=== PATIENT | female | born 1930 | race Caucasian/White ===

== ENCOUNTER 2017-12-29 17:29 | Emergency (ER) | payer OTHER ==
[2017-12-29] MEDS ORDERED: NA CHLORIDE 0.9% 500 ML ONE ×2 (18:57→21:29)
[2017-12-29 19:43] LABS: ALT/SGPT 16 U/L (12-78); AST/SGOT 14 U/L (15-37); Albumin 3.8 g/dL (3.4-5.0); Alkaline Phosphatase 64 U/L (45-117); Amylase Level 44 U/L (25-115); BUN Blood Urea Nitrogen 31 mg/dL (7-18); Bicarbonate 23 mmol/L (21-32); Bilirubin Direct < 0.1 mg/dL (0-0.2); Bilirubin Total 0.5 mg/dL (0.2-1.0); Glucose Level 98 mg/dL (74-106); Lipase 125 U/L (73-393); Potassium 4.3 mmol/L (3.5-5.1); Protein, Total 7.3 g/dL (6.4-8.2); Sodium Level 128 mmol/L (136-145)
[2017-12-29 19:44] LABS: Absolute Lymphocytes (CBC) 2.5 K/uL (0.7-4.9); Absolute Monocytes 0.8 K/uL (0.1-1.3); Absolute Neutrophil 5.8 K/uL (1.8-8.0); Basophils % 0.3 % (0-1.3); Eosinophils % 2.5 % (0-4.4); Hematocrit 40.1 % (36.0-45.0); Lymphocytes % 26.8 % (15.3-44.8); MCH 32.3 pg (27.0-35.0); MCV 94.8 fL (80-100); MPV 8.2 fL (7.6-11.3); Monocytes % 8.9 % (3.3-12.3); RBC Red Blood Cell Count 4.24 M/uL (3.86-4.86)
--- NOTE | 2017-12-29 20:13 | RAD REPORT ---
EXAM DESCRIPTION: RAD - Hip Left 2 View - 12/29/2017 7:01 pm CLINICAL HISTORY: Nontraumatic left groin pain COMPARISON: None. FINDINGS: AP and frogleg views of the left hip were obtained. There is no fracture or dislocation. N o AVN or focal femoral head abnormality. Hip joint space narrowing is present. No significant spurrin g or other degenerative change. No periarticular mass or hematoma. No abnormal bowel gas overlying th e left inguinal canal. No gross evidence for pelvic fracture. Pelvic assessment is limited in this se tting. SI joint degenerative changes seen. IMPRESSION: Left hip joint degenerative change, mild in degree, with no acute finding. No gross left-sided bony pelvic finding. SI joint degenerative change.
[2017-12-29 20:52] LABS: Urine Bacteria >50 /HPF (<20); Urine Culture Reflex Order REFLEXED; Urine RBC <5 /HPF (NONE SEEN)
[2017-12-29] MEDS ORDERED: FENTANYL CITR 100 MCG/2 ML ONE (20:58)
[2017-12-29] MEDS ORDERED: CEFTRIAXONE/SWI 1gm 1 GM/10 ML SYR ONE (21:29)
--- NOTE | 2017-12-29 21:51 | RAD REPORT ---
EXAM DESCRIPTION: CT - Abdomen Pelvis Wo Contrast - 12/29/2017 9:34 pm CLINICAL HISTORY: Abdominal pain, pelvic pain, groin pain COMPARISON: None. TECHNIQUE: Axial [address] imaging of the abdomen and pelvis was performed without IV contrast. No IV contrast was given because of allergy, abnormal renal function, patient refusal or physician re quest. Oral contrast was given. All CT scans are performed using dose optimization technique as appropriate and may include automated exposure control or mA/KV adjustment according to patient size. FINDINGS: No suspicious findings in the lung bases. Heart size is prominent. No pericardial thickeni ng or effusion. The liver, spleen and pancreas show no suspicious findings on non-contrast imaging. Gallbladder and b iliary tree are also without suspicious finding. No hydronephrosis or suspicious renal mass. No significant adrenal finding. Isodense renal masses an d pyelonephritis cannot be excluded in the absence of IV contrast. The urinary bladder is without sig nificant finding. Uterus is prominent for age. A 3.2 centimeter hyperdense mass in the fundal portion of the uterus is believed to be an incidental fibroid. No suspicious ovarian finding. No gastric dilatation or gastric wall thickening. No acute small bowel finding. Prominent sigmoid div erticulosis present without diverticulitis. The appendix is dilated at 10 mm. Right-side colon and te rminal ileum are well opacified with oral contrast. No periappendiceal inflammatory stranding. No eliane endicolith. Available clinical history indicates pain in the left groin area. Other than size, no add itional findings of appendicitis. No free air, free fluid or inflammatory stranding. No mass or bulky lymphadenopathy. No large hernia defects identifiable. Patient has very significant lower lumbar disc and bony degenerative change. Severe facet joint degen erative change present. Pathologic bone process is not suspected. IMPRESSION: Provided history was left lower quadrant pain. Patient has prominent diverticulosis but no diverticulitis findings. Appendix is dilated at 10 mm but there is no periappendiceal inflammatory stranding, appendicolith or other acute appendix finding. There is no clinical history provided that would indicate appendicitis type symptoms. Approximately 3.2 cm fundal fibroid in the uterus. No suspicious uterine or ovarian finding. Prominent degenerative changes in the lower lumbar spine with spinal stenosis and foraminal encroachm ent changes. No pathologic bone process suspected. Full assessment is limited is the absence of IV contrast.
--- NOTE | 2017-12-29 22:29 | EDPHYS ---
Physician Documentation [facility] Name: Riddhi Mancilla Age: 87 yrs Sex: Female : 1930 Arrival Date: 12/29/2017 Time: 17:31 Bed 19 Private MD: Jorden Henao ED Physician Pete Macario HPI: 12/29 18:35 This 87 yrs old Female presents to ER via Wheelchair with complaints of cp Abdominal Pain. 18:35 The patient presents with left groin pain. cp 18:35 Onset: The symptoms/episode began/occurred 2 day(s) ago. The symptoms do not radiate. cp Associated signs and symptoms: Pertinent positives: dysuria, Pertinent negatives: blood in stools, constipation, diarrhea, fever, headache, vomiting. Severity of pain: in the emergency department the pain is unchanged despite home interventions. Daughter denies fall or injury to hip. Reports patient has appeared in noticeable discomfort when walking. Historical: - Allergies: 17:35 No Known Allergies; aa5 - PMHx: 17:35 Hypertension; Arthritis; Anemia; Migraines; aa5 17:36 Dementia; aa5 - PSHx: 17:34 cataract surg bilaterally; arm surg; sinus surg; Tonsillectomy; aa5 - Immunization history:: Pneumococcal vaccine is not up to date. - Social history:: Smoking status: Patient/guardian denies using tobacco. - Ebola Screening: : No symptoms or risks identified at this time. ROS: 18:40 Constitutional: Negative for body aches, chills, fever, poor PO intake. cp 18:40 Eyes: Negative for injury, pain, redness, and discharge. cp 18:40 ENT: Negative for drainage from ear(s), ear pain, sore throat, difficulty swallowing, cp difficulty handling secretions. 18:40 Cardiovascular: Negative for chest pain, edema. 18:40 Respiratory: Negative for cough, wheezing. 18:40 Abdomen/GI: Positive for left groin pain, Negative for vomiting, diarrhea, constipation, anorexia, black/tarry stool, rectal bleeding. 18:40 Back: Negative for decreased range of motion, radiated pain. 18:40 : Positive for burning with urination. 18:40 Skin: Negative for cellulitis, rash. 18:40 Neuro: Negative for altered mental status, headache, weakness. 18:40 All other systems are negative. Exam: 18:50 Constitutional: The patient appears in no acute distress, alert, awake, cp non-diaphoretic, non-toxic, well developed, well nourished. 18:50 Head/Face: Normocephalic, atraumatic. cp 18:50 Eyes: Periorbital structures: appear normal, Pupils: equal, round, and reactive to cp light and accomodation, Extraocular movements: intact throughout, Conjunctiva: exudate, bilaterally, injected, bilaterally, Sclera: no appreciated abnormality, Lids and lashes: appear normal, bilaterally. 18:50 ENT: External ear(s): are unremarkable, Ear canal(s): are normal, clear, TM's: dullness, bilaterally, Nose: is normal, Mouth: Lips: moist, Oral mucosa: pink and intact, moist, Posterior pharynx: is normal, airway is patent, no erythema, no exudate. 18:50 Neck: ROM/movement: is normal, is supple, without pain, no range of motions cp limitations, no meningismus, no nuchal rigidity. 18:50 Chest/axilla: Inspection: normal, Palpation: is normal, no crepitus, no tenderness. 18:50 Cardiovascular: Rate: normal, Rhythm: regular, Edema: is not appreciated, JVD: is not appreciated. 18:50 Respiratory: the patient does not display signs of respiratory distress, Respirations: normal, no use of accessory muscles, no retractions, no splinting, no tachypnea, labored breathing, is not present, Breath sounds: are clear throughout, no decreased breath sounds, no stridor, no wheezing. 18:50 Abdomen/GI: Inspection: abdomen appears normal, Bowel sounds: active, all quadrants, Palpation: soft, in all quadrants, mild abdominal tenderness, in the left lower abdomen and left groin, rebound tenderness, is not appreciated, voluntary guarding, is not appreciated, involuntary guarding, is not appreciated. 18:50 Back: pain, is absent, ROM is normal. 18:50 Musculoskeletal/extremity: Extremities: grossly normal except: noted in the left hip: tenderness, There is no evidence of decreased ROM, deformity. 18:50 Skin: cellulitis, is not appreciated, no rash present. 18:50 Neuro: Orientation: no acute changes, per family, Mentation: no acute changes, per family. Vital Signs: 17:36 BP 149 / 77; Pulse 70; Resp 16 S; Temp 98.7(TE); Pulse Ox 95% on R/A; aa5 19:24 BP 124 / 78; Pulse 63; Resp 16; Pulse Ox 98% on R/A; mt 20:12 BP 143 / 88; Pulse 61; Resp 16; Pulse Ox 95% on R/A; mt 20:51 BP 151 / 76; Pulse 70; Resp 16; Pulse Ox 99% on R/A; mt 21:38 BP 154 / 79; Pulse 69; Resp 16; Pulse Ox 99% on R/A; mt 22:55 BP 143 / 70; Pulse 62; Resp 18 S; Temp 98.2(O); Pulse Ox 97% on R/A; Pain 0/10; ea MDM: 18:04 Patient medically screened. cp 19:00 Differential diagnosis: bowel obstruction, gastritis, Pyelonephritis, Ureterolithiasis, cp urinary tract infection, hip fracture. 22:25 Data reviewed: vital signs, nurses notes, lab test result(s), radiologic studies, CT cp scan, plain films. 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 22:25 Response to treatment: the patient's symptoms have markedly improved after treatment, cp and as a result, I will discharge patient. 12/29 18:28 Order name: Amylase, Serum; Complete Time: 20:53 cp 12/29 18:28 Order name: Basic Metabolic Panel; Complete Time: 20:53 cp 12/29 20:53 Interpretation: Normal except: NA 128; BUN 31; CRE 1.60; GFR 30. cp 12/29 18:28 Order name: CBC with Diff; Complete Time: 20:53 cp 12/29 18:28 Order name: Creatinine for Radiology; Complete Time: 20:53 cp 12/29 20:54 Interpretation: Abnormal: CRE 1.50; GFR 33. cp 12/29 18:28 Order name: Hepatic Function; Complete Time: 20:53 cp 12/29 20:53 Interpretation: Normal except: AST 14. cp 12/29 18:28 Order name: Lipase; Complete Time: 20:53 cp 12/29 18:28 Order name: Urine Microscopic Only; Complete Time: 20:53 cp 12/29 20:54 Interpretation: Normal except: UWBC 5-10; UBACT >50. cp 12/29 18:28 Order name: XRAY Hip LEFT 2 view; Complete Time: 20:53 cp 12/29 20:54 Order name: Urine Culture EDMS 12/29 21:12 Order name: CT Abd/Pelvis - Without Cont: give oral contrast; Complete Time: 21:55 cp 12/29 18:28 Order name: IV Saline Lock; Complete Time: 19:20 cp 12/29 18:28 Order name: Labs collected and sent; Complete Time: 19:20 cp 12/29 18:28 Order name: Urine Dipstick-Ancillary (obtain specimen); Complete Time: 20:02 cp Administered Medications: 19:05 Drug: NS 0.9% 500 ml Route: IV; Rate: bolus; Site: right antecubital; em 21:07 Follow up: IV Status: Completed infusion; IV Intake: 500ml tl3 21:08 Drug: fentaNYL (PF) 25 mcg Route: IVP; Site: right antecubital; tl3 21:53 Follow up: Response: No adverse reaction; Pain is decreased ea 21:53 Drug: NS 0.9% 500 ml Route: IV; Rate: bolus; Site: right antecubital; ea 22:30 Follow up: Response: No adverse reaction; IV Status: Completed infusion; IV Intake: ea 500ml 21:53 Drug: Rocephin - (cefTRIAXone) 1 grams Route: IVPB; Infused Over: 30 mins; Site: right ea antecubital; 22:30 Follow up: Response: No adverse reaction; IV Status: Completed infusion ea 23:05 Drug: Augmentin 875 mg Route: PO; ea 23:20 Follow up: Response: No adverse reaction ea Disposition: 12/30 16:07 Co-signature as Attending Physician, Pete Macario MD I agree with the assessment and lizzie plan of care. Disposition: 12/29/17 22:28 Discharged to Home. Impression: Urinary tract infection, site not specified. - Condition is Stable. - Discharge Instructions: Urinary Tract Infection. - Prescriptions for Augmentin 875- 125 mg Oral Tablet - take 1 tablet by ORAL route every 12 hours for 10 days; 20 tablet. Tramadol 50 mg Oral Tablet - take 1 tablet by ORAL route every 8 hours as needed; 12 tablet. - Medication Reconciliation Form, Thank You Letter, Antibiotic Education, Prescription Opioid Use form. - Follow up: Jorden Henao MD; When: 1 - 2 days; Reason: Recheck today's complaints. - Problem is new. - Symptoms have improved. Signatures: Dispatcher [employer] EDDE Pete Macario MD MD cha Munoz, Edgar, ADMINISTRATIVE SUPERVISOR ADMINISTRATIVE SUPERVISOR em Aliya Sharpe, RN RN aa5 Pete Enriquez, PATTI PA cp Donita Schumacher, RN RN Vickie Perez, RN RN tl3 Corrections: (The following items were deleted from the chart) 12/29 21:19 19:50 Abdomen Pelvis W Con+CT.RAD.BRZ ordered. [facility] 23:26 22:28 12/29/2017 22:28 Discharged to Home. Impression: Urinary tract infection, site ea not specified. Condition is Stable. Forms are Medication Reconciliation Form, Thank You Letter, Antibiotic Education, Prescription Opioid Use. Follow up: Jorden Henao; When: 1 - 2 days; Reason: Recheck today's complaints. Problem is new. Symptoms have improved. cp
--- NOTE | 2017-12-29 22:29 | ER ---
Nurse's Notes [facility] Name: Riddhi Mancilla Age: 87 yrs Sex: Female : 1930 Arrival Date: 12/29/2017 Time: 17:31 Bed 19 Private MD: Jorden Henao Diagnosis: Urinary tract infection, site not specified Presentation: 12/29 17:35 Presenting complaint: Patient states: left groin pain that began 2 days ago. Pt also aa5 reports burning with urination. Transition of care: patient was not received from another setting of care. Onset of symptoms was December 2017. Risk Assessment: Do you want to hurt yourself or someone else? Patient reports no desire to harm self or others. Initial Sepsis Screen: Does the patient meet any 2 criteria? No. Patient's initial sepsis screen is negative. Does the patient have a suspected source of infection? No. Patient's initial sepsis screen is negative. Care prior to arrival: None. 17:35 Method Of Arrival: Wheelchair aa5 17:35 Acuity: PARAS 3 aa5 Historical: - Allergies: 17:35 No Known Allergies; aa5 - PMHx: 17:35 Hypertension; Arthritis; Anemia; Migraines; aa5 17:36 Dementia; aa5 - PSHx: 17:34 cataract surg bilaterally; arm surg; sinus surg; Tonsillectomy; aa5 - Immunization history:: Pneumococcal vaccine is not up to date. - Social history:: Smoking status: Patient/guardian denies using tobacco. - Ebola Screening: : No symptoms or risks identified at this time. Screenin:45 Abuse screen: no apparent signs noted. Nutritional screening: No deficits noted. em Tuberculosis screening: No symptoms or risk factors identified. Fall Risk Secondary diagnosis (15 points) dementia, Total Villarreal Fall Scale indicates No Risk (0-24 pts). Assessment: 18:00 General: Appears in no apparent distress. comfortable, Behavior is calm, cooperative. em Pain: Denies pain. Neuro: Level of Consciousness is awake, alert, obeys commands, Oriented to person, place. Cardiovascular: Capillary refill < 3 seconds Patient's skin is warm and dry. Respiratory: Airway is patent Respiratory effort is even, unlabored, Respiratory pattern is regular, symmetrical. GI: Bowel sounds present X 4 quads. Abd is soft and non tender X 4 quads. : Parent/caregiver report the patient having "may have UTI". Derm: Skin is intact, Skin is pink, warm \\T\\ dry. Musculoskeletal: Range of motion: intact in all extremities. 18:55 Reassessment: I agree with above assessment by Carlo Luis LVN. iw 19:30 General: Appears in no apparent distress. Behavior is calm, cooperative. Pain: Denies ea pain. Neuro: Level of Consciousness is awake, alert, obeys commands, Oriented to person, place. Cardiovascular: Patient's skin is warm and dry. Respiratory: Airway is patent Respiratory effort is even, unlabored, Respiratory pattern is regular, symmetrical. GI: Bowel sounds present X 4 quads. Abd is soft and non tender. : Parent/caregiver report the patient having daughter reports pt may be having a UTI. Derm: Skin is pink, warm \\T\\ dry. Musculoskeletal: Circulation, motion, and sensation intact. 20:13 Reassessment: Patient and/or family updated on plan of care and expected duration. Pain ea level reassessed. Alert and oriented to self and place. Respirations even and unlabored, chest expansions even and symmetrical. No s/s of pain or discomfort noted at this time. Family at bedside. 21:50 Reassessment: Patient and/or family updated on plan of care and expected duration. Pain ea level reassessed. 22:45 Reassessment: Patient and/or family updated on plan of care and expected duration. Pain ea level reassessed. Pt alert and oriented to self and place. Respirations even and unlabored, chest expansions even and symmetrical. No s/s of pain or discomfort noted at this time. 23:10 Reassessment: Patient and/or family updated on plan of care and expected duration. Pain ea level reassessed. Pt alert and oriented x 2. Respirations even and unlabored, chest expansions even and symmetrical. Discharge instructions given to patients family, verbalized the understanding of instruction. Vital Signs: 17:36 BP 149 / 77; Pulse 70; Resp 16 S; Temp 98.7(TE); Pulse Ox 95% on R/A; aa5 19:24 BP 124 / 78; Pulse 63; Resp 16; Pulse Ox 98% on R/A; mt 20:12 BP 143 / 88; Pulse 61; Resp 16; Pulse Ox 95% on R/A; mt 20:51 BP 151 / 76; Pulse 70; Resp 16; Pulse Ox 99% on R/A; mt 21:38 BP 154 / 79; Pulse 69; Resp 16; Pulse Ox 99% on R/A; mt 22:55 BP 143 / 70; Pulse 62; Resp 18 S; Temp 98.2(O); Pulse Ox 97% on R/A; Pain 0/10; ea ED Course: 17:31 Patient arrived in ED. mr 17:32 Jorden Henao MD is Private Physician. mr 17:33 Arm band placed on. aa5 17:36 Triage completed. aa5 17:46 Carlo Luis LVN is Primary Nurse. em 18:00 Patient has correct armband on for positive identification. Bed in low position. Call em light in reach. Side rails up X2. Adult w/ patient. 18:04 Pete Enriquez PA is PHCP. cp 18:04 Pete Macario MD is Attending Physician. cp 19:02 XRAY Hip LEFT 2 view In Process Unspecified. EDMS 19:05 Inserted saline lock: 20 gauge in right antecubital area, using aseptic technique. em Blood collected. 19:31 No provider procedures requiring assistance completed. em 21:33 CT completed. Patient moved to CT via stretcher. Patient moved back from CT. cw1 21:34 CT Abd/Pelvis - Without Cont: give oral contrast In Process Unspecified. EDMS 22:28 Jorden Henao MD is Referral Physician. cp 23:11 IV discontinued, intact, bleeding controlled, No redness/swelling at site. Pressure ea dressing applied. Administered Medications: 19:05 Drug: NS 0.9% 500 ml Route: IV; Rate: bolus; Site: right antecubital; em 21:07 Follow up: IV Status: Completed infusion; IV Intake: 500ml tl3 21:08 Drug: fentaNYL (PF) 25 mcg Route: IVP; Site: right antecubital; tl3 21:53 Follow up: Response: No adverse reaction; Pain is decreased ea 21:53 Drug: NS 0.9% 500 ml Route: IV; Rate: bolus; Site: right antecubital; ea 22:30 Follow up: Response: No adverse reaction; IV Status: Completed infusion; IV Intake: ea 500ml 21:53 Drug: Rocephin - (cefTRIAXone) 1 grams Route: IVPB; Infused Over: 30 mins; Site: right ea antecubital; 22:30 Follow up: Response: No adverse reaction; IV Status: Completed infusion ea 23:05 Drug: Augmentin 875 mg Route: PO; ea 23:20 Follow up: Response: No adverse reaction ea Intake: 21:07 IV: 500ml; Total: 500ml. tl3 22:30 IV: 500ml; Total: 1000ml. ea Outcome: 22:28 Discharge ordered by MD. cp 23:02 Discharge instructions given to family, Instructed on discharge instructions, follow up ea and referral plans. medication usage, Demonstrated understanding of instructions, follow-up care, medications, Prescriptions given X 2. 23:18 Discharged to home via wheelchair, with family. ea 23:18 Condition: improved 23:26 Patient left the ED. ea Addendum: 01/01/2018 08:47 Addendum: Culture Results: Positive urine culture. No further action required. Bacteria i w sensitive to prescribed antibiotic. Signatures: Dispatcher [employer] Delaney Solares mr Luis, Carlo, JUNIOR PROJECT COORDINATOR JUNIOR PROJECT COORDINATOR em Rabia Weinberg, RN Aliya Jones RN RN Gisela Bella1 Pete Enriquez PA PA cp Thompson, Moriah Donita Thacker RN Vickie Carrera ea RN RN tl3
[2017-12-29] MEDS ORDERED: AMOX/K CLAV 875 MG TAB ONE (23:06)
== END 2017-12-29 23:26 | disposition home or self-care (01) ==
LOC: ER 17:29
DX: N39.0 Urinary tract infection, site not specified (principal); I10 Essential (primary) hypertension
CPT/HCPCS: 36415; 73502; 74176; 80048; 80076; 81015; 82150; 83690; 85025; 87086; 87088; J0696; J3010; 87077; 87186; 96361; 96365; 96375; 99284

== ENCOUNTER 2018-03-06 19:38 | Emergency (ER) | payer OTHER ==
--- NOTE | 2018-03-06 20:59 | RAD REPORT ---
EXAM DESCRIPTION: RAD - Chest Single View - 03/06/2018 8:52 pm CLINICAL HISTORY: COUGH Chest pain. COMPARISON: No comparisons FINDINGS: Portable technique limits examination quality. The lungs are grossly clear. The heart is normal in size. No displaced fractures. IMPRESSION: No acute intrathoracic process suspected.
[2018-03-06 21:09] LABS: Urine Bacteria 20-50 /HPF (<20); Urine Culture Reflex Order REFLEXED; Urine Mucus 1+ /HPF (NONE SEEN); Urine RBC <5 /HPF (NONE SEEN)
[2018-03-06 21:09] LABS: Urine Blood TRACE (NEG); Urine Glucose NEGATIVE (NEG); Urine Protein NEGATIVE (NEG)
[2018-03-06 21:30] LABS: Absolute Lymphocytes (CBC) 2.6 K/uL (0.7-4.9); Absolute Neutrophil 9.6 K/uL (1.8-8.0); Basophils % 0.3 % (0-1.3); Eosinophils % 2.5 % (0-4.4); Hematocrit 42.1 % (36.0-45.0); Lymphocytes % 19.2 % (15.3-44.8); MCH 32.1 pg (27.0-35.0); MCV 93.6 fL (80-100); Monocytes % 7.3 % (3.3-12.3)
[2018-03-06 21:33] LABS: Protime INR 0.98
[2018-03-06 21:47] LABS: Albumin 3.9 g/dL (3.4-5.0); Bilirubin Direct 0.1 mg/dL (0-0.2); Bilirubin Total 0.5 mg/dL (0.2-1.0); CKMB Creatine Kinase MB 1.2 ng/mL (0.3-3.6); Magnesium 2.3 mg/dL (1.8-2.4); Potassium 4.4 mmol/L (3.5-5.1); Protein, Total 7.7 g/dL (6.4-8.2)
[2018-03-06] MEDS ORDERED: CEFTRIAXONE 1000 MG/VIAL ONE (23:06)
[2018-03-06] MEDS ORDERED: NA CHLORIDE 0.9% 250 ML ONE (23:06)
--- NOTE | 2018-03-07 00:17 | EDPHYS ---
Physician Documentation [facility] Name: Riddhi Mancilla Age: 87 yrs Sex: Female : 1930 Arrival Date: 03/06/2018 Time: 19:42 Bed 17 Private MD: Jorden Henao ED Physician Farzad Jon HPI: 03/07 00:11 This 87 yrs old Female presents to ER via Wheelchair with complaints of Flank wa Pain, DEHYDRATION. 00:11 The patient complains of pain in the right flank. The pain does not radiate. Onset: The wa symptoms/episode began/occurred 1 week(s) ago. Modifying factors: The symptoms are alleviated by nothing. the symptoms are aggravated by urination. Associated signs and symptoms: Pertinent positives: dysuria, Pertinent negatives: diarrhea, fever, vomiting. Severity of pain: At its worst the pain was moderate in the emergency department the pain is unchanged. The patient has not experienced similar symptoms in the past. The patient has not recently seen a physician. Historical: - Allergies: 03/06 19:48 No Known Allergies; aj1 - Home Meds: 20:16 digoxin 125 mcg Oral tab [Active]; venlafaxine 150 mg oral tr24 [Active]; enalapril bp maleate 20 mg Oral tab [Active]; levothyroxine 75 mcg tab [Active]; memantine 10 mg oral tab [Active]; Cimetidine 800 mg Oral [Active]; Klor-Con 10 10 mEq Oral TbER [Active]; - PMHx: 19:48 Anemia; Arthritis; Dementia; Hypertension; Migraines; aj1 - PSHx: 19:48 cataract surg bilaterally; arm surg; sinus surg; Tonsillectomy; aj1 - Immunization history:: Flu vaccine is not up to date. - Social history:: Smoking status: Patient/guardian denies using tobacco. - Ebola Screening: : Patient denies travel to an Ebola-affected area in the 21 days before illness onset. - Family history:: not pertinent. - Hospitalizations: : No recent hospitalization is reported. ROS: 03/07 00:12 Constitutional: Negative for fever, chills, and weight loss, Eyes: Negative for injury, wa pain, redness, and discharge, ENT: Negative for injury, pain, and discharge, Neck: Negative for injury, pain, and swelling, Cardiovascular: Negative for chest pain, palpitations, and edema, Respiratory: Negative for shortness of breath, cough, wheezing, and pleuritic chest pain, Abdomen/GI: Negative for abdominal pain, nausea, vomiting, diarrhea, and constipation, Back: Negative for injury and pain, MS/Extremity: Negative for injury and deformity, Skin: Negative for injury, rash, and discoloration, Neuro: Negative for headache, weakness, numbness, tingling, and seizure. : Positive for urinary symptoms. Exam: 00:12 Constitutional: This is a well developed, well nourished patient who is awake, alert, wa and in no acute distress. Head/Face: Normocephalic, atraumatic. Eyes: Pupils equal round and reactive to light, extra-ocular motions intact. Lids and lashes normal. Conjunctiva and sclera are non-icteric and not injected. Cornea within normal limits. Periorbital areas with no swelling, redness, or edema. ENT: Nares patent. No nasal discharge, no septal abnormalities noted. Tympanic membranes are normal and external auditory canals are clear. Oropharynx with no redness, swelling, or masses, exudates, or evidence of obstruction, uvula midline. Mucous membranes moist. Neck: Trachea midline, no thyromegaly or masses palpated, and no cervical lymphadenopathy. Supple, full range of motion without nuchal rigidity, or vertebral point tenderness. No Meningismus. Chest/axilla: Normal chest wall appearance and motion. Nontender with no deformity. No lesions are appreciated. Cardiovascular: Regular rate and rhythm with a normal S1 and S2. No gallops, murmurs, or rubs. Normal PMI, no JVD. No pulse deficits. Respiratory: Lungs have equal breath sounds bilaterally, clear to auscultation and percussion. No rales, rhonchi or wheezes noted. No increased work of breathing, no retractions or nasal flaring. Abdomen/GI: Soft, non-tender, with normal bowel sounds. No distension or tympany. No guarding or rebound. No evidence of tenderness throughout. Back: No spinal tenderness. No costovertebral tenderness. Full range of motion. Skin: Warm, dry with normal turgor. Normal color with no rashes, no lesions, and no evidence of cellulitis. MS/ Extremity: Pulses equal, no cyanosis. Neurovascular intact. Full, normal range of motion. Neuro: Awake and alert, GCS 15, oriented to person, place, time, and situation. Cranial nerves II-XII grossly intact. Motor strength 5/5 in all extremities. Sensory grossly intact. Cerebellar exam normal. Normal gait. Psych: Awake, alert, with orientation to person, place and time. Behavior, mood, and affect are within normal limits. 00:12 : CVA tenderness, is absent. Vital Signs: 03/06 19:48 BP 153 / 84; Pulse 75; Resp 18; Temp 98.5(O); Pulse Ox 97% on R/A; Weight 45.36 kg (R); aj1 Pain 0/10; 21:30 BP 147 / 81; Pulse 65; Resp 14; Pulse Ox 95% ; bp 22:45 BP 169 / 82; Pulse 68; Resp 14; Pulse Ox 97% ; bp 03/07 00:56 BP 163 / 82; Pulse 67; Resp 14; Pulse Ox 98% ; bp MDM: 03/06 20:02 Patient medically screened. 03/07 00:13 Differential diagnosis: nephrolithiasis, pyelonephritis, UTI. Data reviewed: vital wa signs, nurses notes, lab test result(s). Test interpretation: by ED physician or midlevel provider: UA noted for UTI. CT noted for constipation. Response to treatment: the patient's symptoms have markedly improved after treatment. 03/06 20: Order name: Urine Microscopic Only; Complete Time: 22:10 03/06 20:28 Order name: Basic Metabolic Panel; Complete Time: 22:10 03/06 20:28 Order name: CBC with Diff 03/06 20: Order name: Ckmb; Complete Time: 22:10 03/06 20:28 Order name: CPK; Complete Time: 22:10 03/06 20:28 Order name: LFT's; Complete Time: 22:10 03/06 20:28 Order name: Magnesium; Complete Time: 22:10 03/06 20:28 Order name: NT PRO-BNP; Complete Time: 22:10 03/06 20:28 Order name: PT-INR; Complete Time: 22:10 03/06 20:28 Order name: Ptt, Activated; Complete Time: 22:10 03/06 20:26 Order name: IV Saline Lock; Complete Time: 23:35 pr 03/06 20:26 Order name: Labs collected and sent; Complete Time: 21:08 pr 03/06 20:26 Order name: Urine Dipstick-Ancillary (obtain specimen); Complete Time: 21:08 pr 03/06 20:28 Order name: XRAY Chest (1 view); Complete Time: 21:04 pr 03/06 20:28 Order name: Troponin (emerg Dept Use Only); Complete Time: 22:10 pr 03/06 20:28 Order name: Cardiac monitoring; Complete Time: 21:09 pr 03/06 20:28 Order name: IV Saline Lock; Complete Time: 23:35 pr 03/06 20:28 Order name: O2 Sat Monitoring; Complete Time: 21:08 pr 03/06 21:03 Order name: Urine Dipstick--Ancillary (enter results); Complete Time: 22:09 2 03/06 21:09 Order name: Urine Culture [facility] 03/06 22:12 Order name: CT Abd/Pelvis - Without Cont wa Administered Medications: 03/06 23:10 Drug: Rocephin - (cefTRIAXone) 2 grams Route: IVPB; Infused Over: 30 mins; Site: left bp antecubital; 03/07 00:29 Follow up: IV Status: Completed infusion; IV Intake: 100ml bp Disposition: 03/07/18 00:16 Discharged to Home. Impression: Urinary tract infection, site not specified, Constipation. - Condition is Stable. - Discharge Instructions: Constipation, Adult, [id number], Urinary Tract Infection, Adult, [id number]. - Prescriptions for senna 8.6 mg Oral tablet - take 2 tablet by ORAL route once daily; 10 tablet. Keflex 500 mg Oral Capsule - take 1 capsule by ORAL route every 8 hours for 5 days; 15 capsule. - Medication Reconciliation Form, Thank You Letter, Antibiotic Education, Prescription Opioid Use form. - Follow up: Private Physician; When: 1 - 2 days; Reason: Re-evaluation by your physician. - Problem is new. - Symptoms have improved. - Notes: please give medicine as prescribed. give senna only if difficulty voiding stool and stool is hard. do not give when stool becomes regularized Signatures: Dispatcher [facility] Kimberly Vasques RN RN aj1 DanayFarzad mancuso MD MD wa Peltier, Brian, RN RN bp Corrections: (The following items were deleted from the chart) 00:16 00:16 03/07/2018 00:16 Discharged to Home. Impression: Urinary tract infection, site wa not specified. Condition is Stable. Forms are Medication Reconciliation Form, Thank You Letter, Antibiotic Education, Prescription Opioid Use. Follow up: Private Physician; When: 1 - 2 days; Reason: Re-evaluation by your physician. Problem is new. Symptoms have improved. pr 01:10 00:16 03/07/2018 00:16 Discharged to Home. Impression: Urinary tract infection, site bp not specified; Constipation. Condition is Stable. Forms are Medication Reconciliation Form, Thank You Letter, Antibiotic Education, Prescription Opioid Use. Follow up: Private Physician; When: 1 - 2 days; Reason: Re-evaluation by your physician. Problem is new. Symptoms have improved. wa
--- NOTE | 2018-03-07 00:17 | ER ---
Nurse's Notes [facility] Name: Riddhi Mancilla Age: 87 yrs Sex: Female : 1930 Arrival Date: 03/06/2018 Time: 19:42 Bed 17 Private MD: Jorden Henao Diagnosis: Urinary tract infection, site not specified;Constipation Presentation: 03/06 19:45 Presenting complaint: Child states: Her urine has been smelling really foul and she is aj1 having pain on the right flank. Patient denies pain at this time. And she has been falling at home. Transition of care: patient was not received from another setting of care. Onset of symptoms was March 06, 2018. Risk Assessment: Do you want to hurt yourself or someone else? Patient reports no desire to harm self or others. Initial Sepsis Screen: Does the patient meet any 2 criteria? No. Patient's initial sepsis screen is negative. Does the patient have a suspected source of infection? Yes: Dysuria/Frequency/Urgency/UTI. Care prior to arrival: None. 19:45 Method Of Arrival: Wheelchair aj1 19:45 Acuity: PARAS 3 aj1 Triage Assessment: 19:48 General: Appears in no apparent distress. comfortable, Behavior is calm, cooperative, aj1 appropriate for age. Pain: Denies pain. Neuro: Level of Consciousness is awake, alert, obeys commands. Cardiovascular: Patient's skin is warm and dry. Respiratory: Airway is patent Respiratory effort is even, unlabored, Respiratory pattern is regular, symmetrical. : Denies burning with urination, urinary frequency, Parent/caregiver report the patient having flank pain. Derm: Skin is pink, warm \T\ dry. normal. Historical: - Allergies: 19:48 No Known Allergies; aj1 - Home Meds: 20:16 digoxin 125 mcg Oral tab [Active]; venlafaxine 150 mg oral tr24 [Active]; enalapril bp maleate 20 mg Oral tab [Active]; levothyroxine 75 mcg tab [Active]; memantine 10 mg oral tab [Active]; Cimetidine 800 mg Oral [Active]; Klor-Con 10 10 mEq Oral TbER [Active]; - PMHx: 19:48 Anemia; Arthritis; Dementia; Hypertension; Migraines; aj1 - PSHx: 19:48 cataract surg bilaterally; arm surg; sinus surg; Tonsillectomy; aj1 - Immunization history:: Flu vaccine is not up to date. - Social history:: Smoking status: Patient/guardian denies using tobacco. - Ebola Screening: : Patient denies travel to an Ebola-affected area in the 21 days before illness onset. - Family history:: not pertinent. - Hospitalizations: : No recent hospitalization is reported. Screenin:18 Abuse screen: Denies threats or abuse. Denies injuries from another. Nutritional bp screening: No deficits noted. Tuberculosis screening: No symptoms or risk factors identified. Fall Risk None identified. Assessment: 20:00 General: Appears in no apparent distress. comfortable, Behavior is calm, cooperative, bp PT DENIES ACUTE S/S. Pain: Denies pain. Neuro: Level of Consciousness is awake, alert, obeys commands, Oriented to person, place, situation. Cardiovascular: No deficits noted. Respiratory: Airway is patent Respiratory effort is even, unlabored, Respiratory pattern is regular, symmetrical. GI: No signs and/or symptoms were reported involving the gastrointestinal system. : No signs and/or symptoms were reported regarding the genitourinary system. EENT: No deficits noted. Derm: No deficits noted. Musculoskeletal: Circulation, motion, and sensation intact. Range of motion: intact in all extremities. 21:30 Reassessment: VS STABLE, LAB RESULTS PENDING. 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 bp 22:59 Reassessment: PT RETURNED FROM CT. RESULTS AND ABX PENDING. bp 03/07 00:56 Reassessment: PT D/C HOME VIA W/C WITH FAMILY, DX WITH UTI AND CONSTIPATION. bp Vital Signs: 03/06 19:48 BP 153 / 84; Pulse 75; Resp 18; Temp 98.5(O); Pulse Ox 97% on R/A; Weight 45.36 kg (R); aj1 Pain 0/10; 21:30 BP 147 / 81; Pulse 65; Resp 14; Pulse Ox 95% ; bp 22:45 BP 169 / 82; Pulse 68; Resp 14; Pulse Ox 97% ; bp 03/07 00:56 BP 163 / 82; Pulse 67; Resp 14; Pulse Ox 98% ; bp ED Course: 03/06 19:42 Patient arrived in ED. es 19:43 Jorden Henao MD is Private Physician. es 19:47 Triage completed. aj1 19:48 Arm band placed on Patient placed in an exam room. aj1 20:01 Farzad Jon MD is Attending Physician. id 20:07 Isidoro Garcia, RN is Primary Nurse. bp 20:18 Patient has correct armband on for positive identification. Bed in low position. Call bp light in reach. Side rails up X2. Adult w/ patient. 20:42 Straight cath inserted, using sterile technique, 16 Fr. Returned clear yellow urine. mt Patient tolerated well. 20:51 XRAY Chest (1 view) In Process Unspecified. EDMS 22:[address] 22:29 CT Abd/Pelvis - Without Cont In Process Unspecified. EDOH 23:06 Inserted saline lock: 24 gauge in left antecubital area, using aseptic technique. Blood mt collected. 03/07 00:57 No provider procedures requiring assistance completed. IV discontinued, intact, bp bleeding controlled, No redness/swelling at site. Pressure dressing applied. Administered Medications: 03/06 23:10 Drug: Rocephin - (cefTRIAXone) 2 grams Route: IVPB; Infused Over: 30 mins; Site: left bp antecubital; 03/07 00:29 Follow up: IV Status: Completed infusion; IV Intake: 100ml bp Intake: 00:29 IV: 100ml; Total: 100ml. bp Outcome: 00:16 Discharge ordered by . id 00:57 Discharged to home via wheelchair, with family. bp 00:57 Condition: stable 00:57 Discharge instructions given to family, Instructed on discharge instructions, follow up and referral plans. medication usage, Demonstrated understanding of instructions, follow-up care, medications, Prescriptions given X 2. 01:10 Patient left the ED. bp Addendum: 03/09/2018 11:37 Addendum: Culture Results: Positive urine culture. No further action required. Bacteria s s sensitive to prescribed antibiotic. Signatures: Dispatcher [employer] Kimberly Kennedy, RN RN aj1 Roxanna Garcia Susan sj Smirch, Shelby, RN RN ss Thompson, Moriah nj Farzad Jon MD MD wa Peltier, Brian, RN RN bp
--- NOTE | 2018-03-07 08:22 | RAD REPORT ---
EXAM DESCRIPTION: CT - Abdomen Pelvis Wo Contrast - 03/07/2018 3:35 am CLINICAL HISTORY: Abdominal pain. R flank pain COMPARISON: Abdomen Pelvis Wo Contrast dated 12/29/2017 TECHNIQUE: CT imaging of the abdomen and pelvis was performed without contrast. Solid organ, bowel a nd vascular assessment is limited due to lack of IV and oral contrast. All CT scans are performed using dose optimization technique as appropriate and may include automated exposure control or mA/KV adjustment according to patient size. FINDINGS: The lower lung cordoba are clear. The liver, spleen, pancreas, adrenal glands and kidneys are within normal limits for a limited non-co ntrast examination. No bowel obstruction, free air, free fluid or abscess. Diverticulosis coli is present with large amou nt of stool within the colon. Advanced lumbar degenerative changes present. 6 mm anterolisthesis of L3 on 4 is noted. 11 mm anterol isthesis of L4 on 5 is present. Small uterine fibroid suspected. IMPRESSION: Prominent fecal retention in the colon is seen with scattered diverticulosis. Advanced lumbar degenerative change as detailed. A limited non-contrast examination was performed as detailed.
== END 2018-03-07 01:10 | disposition home or self-care (01) ==
LOC: ER 19:38
DX: N39.0 Urinary tract infection, site not specified (principal); K59.00 Constipation, unspecified; I10 Essential (primary) hypertension; F03.90 Unspecified dementia, unspecified severity, without behavioral disturbance, psychotic disturbance, mood disturbance, and anxiety; D64.9 Anemia, unspecified
CPT/HCPCS: 36415; 51702; 71045; 74176; 80048; 80076; 81003; 81015; 82550; 82553; 83735; 83880; 84484; 85025; 85610; 85730; 87077; 87086; 87088; 87186; 96365; 99284

== ENCOUNTER 2018-06-12 22:27 | Inpatient (IN) | payer OTHER ==
[2018-06-12 22:44] LABS: Absolute Lymphocytes (CBC) 3.5 K/uL (0.7-4.9); Basophils % 0.3 % (0-1.3); Eosinophils % 1.9 % (0-4.4); Hematocrit 41.9 % (36.0-45.0); Lymphocytes % 29.8 % (15.3-44.8); MCH 32.4 pg (27.0-35.0); MCV 94.8 fL (80-100); MPV 7.6 fL (7.6-11.3); Monocytes % 8.3 % (3.3-12.3); RBC Red Blood Cell Count 4.42 M/uL (3.86-4.86)
[2018-06-12 22:46] LABS: Protime INR 1.04
[2018-06-12 23:02] LABS: ALT/SGPT 20 U/L (12-78); AST/SGOT 11 U/L (15-37); Albumin 4.1 g/dL (3.4-5.0); Alkaline Phosphatase 71 U/L (45-117); BUN Blood Urea Nitrogen 27 mg/dL (7-18); Bicarbonate 26 mmol/L (21-32); Bilirubin Direct 0.1 mg/dL (0-0.2); Bilirubin Total 0.4 mg/dL (0.2-1.0); Glucose Level 134 mg/dL (74-106); Magnesium 1.9 mg/dL (1.8-2.4); NT PRO-BNP 149 pg/mL (<450); Potassium 3.8 mmol/L (3.5-5.1); Protein, Total 7.9 g/dL (6.4-8.2); Sodium Level 139 mmol/L (136-145); Troponin (Emerg Dept Use Only) < 0.02 ng/mL (0.0-0.045)
[2018-06-12] MEDS ORDERED: NA CHLORIDE 0.9% 100 ML IV ONE (23:21)
[2018-06-12] MEDS ORDERED: FOLIC ACID 5 MG/ML VIAL ONE (23:22)
[2018-06-12] MEDS ORDERED: ASPIRIN 600 MG/SUPP PR ONE (23:46)
[2018-06-12] MEDS ORDERED: CEFTRIAXONE/SWI 1gm 1 GM/10 ML SYR ONE (23:47)
--- NOTE | 2018-06-12 23:48 | EDPHYS ---
Physician Documentation [facility] Name: Riddhi Mancilla Age: 87 yrs Sex: Female : 1930 Arrival Date: 06/12/2018 Time: 22:30 Bed 3 Private MD: Jorden Henao ED Physician Conrado Loco HPI: 06/12 22:45 This 87 yrs old Female presents to ER via Wheelchair with complaints of cp Weakness. 22:45 The patient's problem is reported as weakness, in the right upper extremity, in the cp right lower extremity, in the right side of face. Onset: The symptoms/episode began/occurred today, unknown time. Duration: The episode is continuous. Context: the episode(s) was witnessed, by family, daughter, symptoms became apparent when assisting patient to bathroom this evening. Historical: - Allergies: 22:52 No Known Allergies; fc - Home Meds: 22:57 Cimetidine 800 mg Oral [Active]; digoxin 125 mcg Oral tab 1 tab once daily [Active]; fc enalapril maleate 20 mg Oral tab 1 tab once daily [Active]; Klor-Con 10 10 mEq Oral TbER 1 tab once daily [Active]; levothyroxine 75 mcg tab 1 tab once daily [Active]; memantine 10 mg Oral tab 1 tab 2 times per day [Active]; venlafaxine 150 mg Oral tr24 1 tab once daily [Active]; - PMHx: 22:52 Anemia; Dementia; Hypertension; Migraines; Arthritis; GERD; Depression; fc 22:57 Hypothyroidism; fc - PSHx: 22:52 cataract surg bilaterally; arm surg; sinus surg; Tonsillectomy; Hysterectomy; fc - Immunization history:: Last tetanus immunization: up to date Flu vaccine is not up to date. - Social history:: Smoking status: Patient/guardian denies using tobacco, Patient/guardian denies using alcohol. - Ebola Screening: : Patient negative for fever greater than or equal to 101.5 degrees Fahrenheit, and additional compatible Ebola Virus Disease symptoms Patient denies exposure to infectious person Patient denies travel to an Ebola-affected area in the 21 days before illness onset. ROS: 22:50 Constitutional: Negative for fever, poor PO intake. cp 22:50 Neck: Negative for pain with movement, pain at rest, stiffness. cp 22:50 Cardiovascular: Negative for chest pain, edema. 22:50 Respiratory: Negative for cough, wheezing. 22:50 Abdomen/GI: Negative for vomiting, diarrhea, constipation. 22:50 Skin: Negative for cellulitis, rash. 22:50 Neuro: Positive for weakness, of the right arm and right leg, Negative for syncope. 22:50 All other systems are negative. Exam: 22:54 Radiologist reports: no acute intracranial findings cp 23:00 ECG was reviewed by the Attending Physician. cp 23:10 Constitutional: The patient appears alert, awake, non-diaphoretic, non-toxic, well cp developed, frail. 23:10 Head/Face: Normocephalic, atraumatic. cp 23:10 Eyes: Periorbital structures: appear normal, Pupils: equal, round, and reactive to light and accomodation, Conjunctiva: normal, no exudate, no injection, Sclera: no appreciated abnormality, Lids and lashes: appear normal, bilaterally. 23:10 ENT: External ear(s): are unremarkable, Ear canal(s): are normal, clear, TM's: bulging, is not appreciated, bilaterally, dullness, bilaterally, erythema, is not appreciated, bilaterally, Nose: is normal, Mouth: Lips: moist, Oral mucosa: pink and intact, moist, Posterior pharynx: is normal, airway is patent, no erythema, no exudate. 23:10 Neck: ROM/movement: is normal, is supple, without pain, no range of motions limitations, no meningismus, no nuchal rigidity. 23:10 Chest/axilla: Inspection: normal, Palpation: is normal, no crepitus, no tenderness. 23:10 Cardiovascular: Rate: normal, Rhythm: regular, Edema: is not appreciated, JVD: is not appreciated. 23:10 Respiratory: the patient does not display signs of respiratory distress, Respirations: normal, no use of accessory muscles, no retractions, no splinting, no tachypnea, labored breathing, is not present, Breath sounds: are clear throughout, no decreased breath sounds, no stridor, no wheezing. 23:10 Abdomen/GI: Inspection: abdomen appears normal, Bowel sounds: active, all quadrants, Palpation: abdomen is soft and non-tender, in all quadrants. 23:10 Back: pain, is absent, ROM is normal. 23:10 Musculoskeletal/extremity: Exam is negative for deformity, injury. 23:10 Skin: cellulitis, is not appreciated, no rash present. 23:10 Neuro: Orientation: to person, Mentation: able to follow commands, slow to respond, confused, Cerebellar function: Romberg testing is abnormal, unable to lift right arm, dysmetria is noted on the right, Motor: Strength is 3/5 in the right arm and right leg, Sensation: no obvious gross deficits, Gait: not tested. Vital Signs: 22:30 BP 133 / 73; Pulse 71; Resp 16; Pulse Ox 95% on R/A; Weight 45.36 kg (R); Height 5 ft. fc 1 in. (154.94 cm) (R); Pain 0/10; 23:46 BP 118 / 63; Pulse 62; Resp 18; Pulse Ox 97% on R/A; Pain 0/10; aa1 06/13 00:30 BP 121 / 70; Pulse 60; Resp 17; Pulse Ox 99% on R/A; rr5 01:00 BP 128 / 71; Pulse 60; Resp 16; Pulse Ox 98% on R/A; rr5 06/12 22:30 Body Mass Index 18.89 (45.36 kg, 154.94 cm) fc NIH Stroke Scale Scores: 06/12 22:50 NIHSS Score: 10 rr5 23:07 NIHSS Score: 10 cp 23:50 NIHSS Score: 10 rr5 06/13 01:00 NIHSS Score: 10 rr5 Destiny Coma Score: 06/12 22:30 Eye Response: spontaneous(4). Verbal Response: oriented(5). Motor Response: obeys rr5 commands(6). Total: 15. MDM: 22:38 ED course: Patient is not a candidate for tpa as last known normal is unknown. Daughter cp reports patient took nap around 3 pm today and when she awoke seemed to be weak on right side of body. 22:41 Patient medically screened. cp 23:00 Differential diagnosis: CVA, TIA, drug effects, UTI. cp 23:10 Data reviewed: vital signs, nurses notes, lab test result(s), EKG, radiologic studies, cp CT scan, plain films. 23:10 Test interpretation: by ED physician or midlevel provider: ECG, plain radiologic cp studies. 23:20 Physician consultation: Sudhir Fam MD was called at 11:15, was contacted at 11:15, cp regarding consult, patient's condition, would like admission per Dr. Jorden Henao MD. 06/12 22:38 Order name: Glucose, Ancillary Testing; Complete Time: 22:39 EDMS 06/12 22:40 Order name: Basic Metabolic Panel cp 06/12 22:40 Order name: CBC with Diff cp 06/12 22:40 Order name: LFT's cp 06/12 22:40 Order name: Magnesium cp 06/12 22:40 Order name: NT PRO-BNP cp 06/12 22:40 Order name: PT-INR; Complete Time: 23:06 06/12 22:40 Order name: Troponin (emerg Dept Use Only) cp 06/12 22:41 Order name: Basic Metabolic Panel; Complete Time: 23:06 EDMS 06/12 23:06 Interpretation: Normal except: GLUC 134; BUN 27; CRE 1.40; GFR 35. 06/12 22:41 Order name: CBC with Automated Diff; Complete Time: 23:06 EDMS 06/12 23:06 Interpretation: Normal except: WBC 11.7. cp 06/12 22:41 Order name: Liver (Hepatic) Function; Complete Time: 23:06 EDMS 06/12 22:41 Order name: Magnesium; Complete Time: 23:06 EDMS 06/12 22:41 Order name: NT PRO-BNP; Complete Time: 23:06 EDMS 06/12 22:41 Order name: Troponin (Emerg Dept Use Only); Complete Time: 23:06 EDMS 06/12 22:40 Order name: XRAY Chest (1 view) 06/12 22:40 Order name: EKG; Complete Time: 22:41 06/12 22:40 Order name: Cardiac monitoring; Complete Time: 22:41 06/12 22:40 Order name: EKG - Nurse/Tech; Complete Time: 22:55 06/12 22:40 Order name: IV Saline Lock; Complete Time: 22:41 06/12 22:40 Order name: Labs collected and sent; Complete Time: 22:41 06/12 22:40 Order name: O2 Per Protocol; Complete Time: 22:41 06/12 22:40 Order name: CT Head Brain wo Cont cp 06/12 23:05 Order name: Urine Microscopic Only; Complete Time: 03:05 cp 06/13 03:05 Interpretation: Normal except: UWBC 10-20; UBACT LOADED. cp 06/12 23:29 Order name: Urine Culture cp 06/12 23:35 Order name: Urine Dipstick--Ancillary (enter results); Complete Time: 03:05 ar5 06/13 03:05 Interpretation: Normal except: U NIT POSITIVE. cp 06/12 23:50 Order name: CONS Physician Consult EDMS 06/12 22:40 Order name: O2 Sat Monitoring; Complete Time: 22:41 cp 06/12 23:05 Order name: Swallow Screen; Complete Time: 23:38 cp 06/12 23:05 Order name: Urine Dipstick-Ancillary (obtain specimen); Complete Time: 23:24 cp 06/12 23:05 Order name: Cath; Complete Time: 23:24 cp EC:00 Rate is 66 beats/min. Rhythm is regular. CT interval is normal. QRS interval is normal. cp QT interval is normal. Interpreted by me. Reviewed by me. Administered Medications: 23:24 Drug: foLIC Acid 1 mg Route: IVPB; Site: left antecubital; tl2 06/13 00:00 Follow up: Response: No adverse reaction; IV Status: Completed infusion; IV Intake: rr5 100ml 01:32 Follow up: Response: No adverse reaction; IV Status: Completed infusion; IV Intake: rr5 100ml 06/12 23:50 Drug: Rocephin - (cefTRIAXone) 1 grams Route: IVPB; Infused Over: 30 mins; Site: left rr5 antecubital; 06/13 01:31 Follow up: Response: No adverse reaction; IV Status: Completed infusion rr5 06/12 23:55 Drug: Aspirin Chewable Tablet 324 mg Route: PO; rr5 06/13 01:31 Follow up: Response: No adverse reaction rr5 00:06 Not Given (good gag reflex.aspirin 324mg given PO): Aspirin Suppository [address] once rr5 Point of Care Testing: Blood Glucose: 06/12 22:35 Blood Glucose: 154 mg/dL; fc Ranges: Critical Glucose Levels:Adult <50 mg/dl or >400 mg/dl <40 mg/dl or >180 mg/dl Disposition: 06/13 01:45 Chart complete. cp Disposition: 06/12/18 23:47 Hospitalization ordered by Jorden Henao for Inpatient Admission. Preliminary diagnosis are Weakness - Right arm and right leg, Urinary tract infection, site not specified. - Bed requested for Telemetry/MedSurg (Inpatient). - Status is Inpatient Admission. rr5 - Condition is Stable. - Problem is new. - Symptoms are unchanged. UTI on Admission? Yes NIH Stroke Scale - NIH Stroke Score Date: 06/12/2018 Time: 22:50 Total Score = 10 1a. Level of Consciousness (LOC) - 0(Alert) 1b. Level of Consciousness (LOC) (Year \T\ Age) - 1(One) 1c. LOC Commands (Open \T\ Closes Eyes/Partner Management Consultant) - 1(One) 2. Best Gaze (Lateral Gaze Paresis) - 0(Normal) 3. Visual Field Loss - 0(No visual loss) 4. Facial Palsy - 1(Minor Paralysis) 5a. Left Arm: Motor (10-second hold) - 0(No drift) 5b. Right Arm: Motor (10-second hold) - 2(Drift, some effort against gravity) 6a. Left Leg: Motor (5-second hold - always test supine) - 0(No drift) 6b. Right Leg: Motor (5-second hold - always test supine) - 2(Drift, some effort against gravity) 7. Limb Ataxia (finger/nose \T\ heel/stapleton - test with eyes open) - 2(Present in two limbs) 8. Sensory Loss (pinprick arms/legs/face) - 0(Normal) 9. Best Language: Aphasia (description/naming/reading) - 1(Mild to moderate aphasia) 10. Dysarthria (speech clarity - read or repeat words) - 0(Normal) 11. Extinction and Inattention (visual/tactile/auditory/spatial/personal) - 0(No abnormality) Initials: rr5 NIH Stroke Scale - NIH Stroke Score Date: 06/12/2018 Time: 23:07 Total Score = 10 1a. Level of Consciousness (LOC) - 0(Alert) 1b. Level of Consciousness (LOC) (Year \T\ Age) - 1(One) 1c. LOC Commands (Open \T\ Closes Eyes/Partner Management Consultant) - 1(One) 2. Best Gaze (Lateral Gaze Paresis) - 0(Normal) 3. Visual Field Loss - 0(No visual loss) 4. Facial Palsy - 1(Minor Paralysis) 5a. Left Arm: Motor (10-second hold) - 0(No drift) 5b. Right Arm: Motor (10-second hold) - 2(Drift, some effort against gravity) 6a. Left Leg: Motor (5-second hold - always test supine) - 0(No drift) 6b. Right Leg: Motor (5-second hold - always test supine) - 2(Drift, some effort against gravity) 7. Limb Ataxia (finger/nose \T\ heel/stapleton - test with eyes open) - 2(Present in two limbs) 8. Sensory Loss (pinprick arms/legs/face) - 0(Normal) 9. Best Language: Aphasia (description/naming/reading) - 1(Mild to moderate aphasia) 10. Dysarthria (speech clarity - read or repeat words) - 0(Normal) 11. Extinction and Inattention (visual/tactile/auditory/spatial/personal) - 0(No abnormality) Initials: cp NIH Stroke Scale - NIH Stroke Score Date: 06/12/2018 Time: 23:50 Total Score = 10 1a. Level of Consciousness (LOC) - 0(Alert) 1b. Level of Consciousness (LOC) (Year \T\ Age) - 1(One) 1c. LOC Commands (Open \T\ Closes Eyes/Partner Management Consultant) - 1(One) 2. Best Gaze (Lateral Gaze Paresis) - 0(Normal) 3. Visual Field Loss - 0(No visual loss) 4. Facial Palsy - 1(Minor Paralysis) 5a. Left Arm: Motor (10-second hold) - 0(No drift) 5b. Right Arm: Motor (10-second hold) - 2(Drift, some effort against gravity) 6a. Left Leg: Motor (5-second hold - always test supine) - 0(No drift) 6b. Right Leg: Motor (5-second hold - always test supine) - 2(Drift, some effort against gravity) 7. Limb Ataxia (finger/nose \T\ heel/stapleton - test with eyes open) - 2(Present in two limbs) 8. Sensory Loss (pinprick arms/legs/face) - 0(Normal) 9. Best Language: Aphasia (description/naming/reading) - 1(Mild to moderate aphasia) 10. Dysarthria (speech clarity - read or repeat words) - 0(Normal) 11. Extinction and Inattention (visual/tactile/auditory/spatial/personal) - 0(No abnormality) Initials: rr5 NIH Stroke Scale - NIH Stroke Score Date: 06/13/2018 Time: 01:00 Total Score = 10 1a. Level of Consciousness (LOC) - 0(Alert) 1b. Level of Consciousness (LOC) (Year \T\ Age) - 1(One) 1c. LOC Commands (Open \T\ Closes Eyes/Partner Management Consultant) - 1(One) 2. Best Gaze (Lateral Gaze Paresis) - 0(Normal) 3. Visual Field Loss - 0(No visual loss) 4. Facial Palsy - 1(Minor Paralysis) 5a. Left Arm: Motor (10-second hold) - 0(No drift) 5b. Right Arm: Motor (10-second hold) - 2(Drift, some effort against gravity) 6a. Left Leg: Motor (5-second hold - always test supine) - 0(No drift) 6b. Right Leg: Motor (5-second hold - always test supine) - 2(Drift, some effort against gravity) 7. Limb Ataxia (finger/nose \T\ heel/stapleton - test with eyes open) - 2(Present in two limbs) 8. Sensory Loss (pinprick arms/legs/face) - 0(Normal) 9. Best Language: Aphasia (description/naming/reading) - 1(Mild to moderate aphasia) 10. Dysarthria (speech clarity - read or repeat words) - 0(Normal) 11. Extinction and Inattention (visual/tactile/auditory/spatial/personal) - 0(No abnormality) Initials: rr5 Addendum: 06/16/2018 10:31 Co-signature as Attending Physician, Conrado Loco MD. Signatures: Dispatcher [employer] EDMS Kim Ulloa RN RN Patt Hart RN RN fc Page, Corey, PA PA cp Knox, Taylor, RN RN tl2 Conrado Loco MD MD Gary Hunter RN RN rr5 Corrections: (The following items were deleted from the chart) 06/13 00:04 06/12 23:47 Hospitalization Ordered by Jorden Henao MD for Inpatient Admission. pool Preliminary diagnosis is Weakness - Right arm and right leg; Urinary tract infection, site not specified. Bed requested for Telemetry/MedSurg (Inpatient). Status is Inpatient Admission. Condition is Stable. Problem is new. Symptoms are unchanged. UTI on Admission? Yes. cp 06/13 01:32 00:04 06/12/2018 23:47 Hospitalization Ordered by Jorden Henao MD for Inpatient rr5 Admission. Preliminary diagnosis is Weakness - Right arm and right leg; Urinary tract infection, site not specified. Bed requested for Telemetry/MedSurg (Inpatient). Status is Inpatient Admission. Condition is Stable. Problem is new. Symptoms are unchanged. UTI on Admission? Yes. mw
--- NOTE | 2018-06-12 23:48 | ER ---
Nurse's Notes [facility] Name: Riddhi Mancilla Age: 87 yrs Sex: Female : 1930 Arrival Date: 06/12/2018 Time: 22:30 Bed 3 Private MD: Jorden Henao Diagnosis: Weakness-Right arm and right leg;Urinary tract infection, site not specified Presentation: 06/12 22:30 Presenting complaint: Daughter states that when she was taking pt to bathroom tonight fc that she noticed that the pt had right sided weakness and facial droop. Pt has dx of dementia so it is hard for her to given exact last well known time. She thinks is was around 1300 today. Transition of care: patient was not received from another setting of care. An acute neurological deficit is present. The charge nurse has been notified. The patient has been moved to a treatment area. Pre-hospital glucose is not applicable to this patient. Onset of symptoms was June 12, 2018 at 13:00. Risk Assessment: Do you want to hurt yourself or someone else? Patient reports no desire to harm self or others. Initial Sepsis Screen: Does the patient meet any 2 criteria? No. Patient's initial sepsis screen is negative. Does the patient have a suspected source of infection? No. Patient's initial sepsis screen is negative. Care prior to arrival: Medication(s) given: ASA, at noon then again at 2100. 22:30 Method Of Arrival: Wheelchair fc 22:30 Acuity: PARAS 2 fc Triage Assessment: 22:30 General: Appears in no apparent distress. Behavior is calm, cooperative. rr5 22:30 The onset of the patients symptoms was June 12, 2018 at 13:00. Pain: Denies pain. rr5 Neuro: Reports weakness in right side since 1300H 06/12/18. Stroke Activation: Symptom onset > 6 hours Physician: Stroke Attending; Name: ; Notified At: ; Arrived At: Physician: Chief Stroke Resident; Name: ; Notified At: ; Arrived At: Physician: Stroke Resident; Name: ; Notified At: ; Arrived At: Physician: ED Attending; Name: Beronica; Notified At: 22:30; Arrived At: 22:30 Physician: ED Resident; Name: ; Notified At: ; Arrived At: Historical: - Allergies: 22:52 No Known Allergies; fc - Home Meds: 22:57 Cimetidine 800 mg Oral [Active]; digoxin 125 mcg Oral tab 1 tab once daily [Active]; fc enalapril maleate 20 mg Oral tab 1 tab once daily [Active]; Klor-Con 10 10 mEq Oral TbER 1 tab once daily [Active]; levothyroxine 75 mcg tab 1 tab once daily [Active]; memantine 10 mg Oral tab 1 tab 2 times per day [Active]; venlafaxine 150 mg Oral tr24 1 tab once daily [Active]; - PMHx: 22:52 Anemia; Dementia; Hypertension; Migraines; Arthritis; GERD; Depression; fc 22:57 Hypothyroidism; fc - PSHx: 22:52 cataract surg bilaterally; arm surg; sinus surg; Tonsillectomy; Hysterectomy; fc - Immunization history:: Last tetanus immunization: up to date Flu vaccine is not up to date. - Social history:: Smoking status: Patient/guardian denies using tobacco, Patient/guardian denies using alcohol. - Ebola Screening: : Patient negative for fever greater than or equal to 101.5 degrees Fahrenheit, and additional compatible Ebola Virus Disease symptoms Patient denies exposure to infectious person Patient denies travel to an Ebola-affected area in the 21 days before illness onset. Screenin:30 Abuse screen: Denies threats or abuse. Nutritional screening: No deficits noted. Tuberculosis screening: No symptoms or risk factors identified. 23:50 Patient has been NPO before screening. The patient is alert, able to follow commands. rr5 The patient does not exhibit slurred or garbled speech The patient is not exhibiting difficulty speaking. The patient does not exhibit difficulty understanding words. The patient is able to swallow own secretions with no drooling or need for suction. Patient tolerated one teaspoon of water. No drooling, immediate coughing, gurgling, or clearing of the throat was noted. The patient tolerated 90mL of water. No drooling, immediate coughing, gurgling, or clearing of the throat was noted. The patient passed the bedside swallow screening. Oral medications may be given as ordered. Contact Physician for further diet orders. Provider notified of bedside swallow screening results: Pete ARMSTRONG. 06/13 00:00 Fall Risk Secondary diagnosis (15 points) dementia, CVA, IV access (20 points). rr5 Ambulatory Aid- None/Bed Rest/Nurse Assist (0 pts). Gait- Weak (10 pts.). Mental Status- Overestimates/Forgets Limitations (15 pts.). Total Villarreal Fall Scale indicates High Risk Score (45 or more points). Fall prevention measures have been instituted. Side Rails Up X 2 Frequent Obs/Assessments Occuring Family Present and informed to notify staff if the need to leave the bedside As available patient and family educated on Fall Prevention Program and Strategies. Assessment: 06/12 22:30 General: Appears in no apparent distress. comfortable, Behavior is calm, cooperative. rr5 22:30 Pain: Denies pain. Neuro: Level of Consciousness is awake, alert, Oriented to person, rr5 place. Cardiovascular: Capillary refill < 3 seconds Patient's skin is warm and dry. Respiratory: Airway is patent Respiratory effort is even, unlabored, Respiratory pattern is regular, symmetrical. GI: No signs and/or symptoms were reported involving the gastrointestinal system. : No signs and/or symptoms were reported regarding the genitourinary system. EENT: No signs and/or symptoms were reported regarding the EENT system. Derm: No signs and/or symptoms reported regarding the dermatologic system. Musculoskeletal: Reports numbness in right arm and leg Parent/caregiver report the patient having weakness in right arm and leg mild facial deviation. 22:37 T-PA (Activase) Screening: Contraindications: Rapidly improving condition or minor rr5 deficit: Yes. 23:30 Patient has been NPO before screening. The patient is alert, and able to follow aa1 commands. The patient does not exhibit slurred or garbled speech. The patient is exhibiting difficulty speaking. Pt speaks clearly however voice is quite soft and pt has difficulty getting her words out The patient does not exhibit difficulty understanding words. The patient is able to swallow own secretions with no drooling or need for suction. Patient tolerated one teaspoon of water. No drooling, immediate coughing, gurgling, or clearing of the throat was noted. The patient tolerated 90mL of water. No drooling, immediate coughing, gurgling, or clearing of the throat was noted. The patient passed the bedside swallow screening. Oral medications may be given as ordered. Contact Physician for further diet orders. Provider notified of bedside swallow screening results: Pete ARMSTRONG. 23:40 Reassessment: Patient denies pain at this time. Patient states feeling better. Patient rr5 states symptoms have improved. 12 01:15 Reassessment: Patient appears in no apparent distress at this time. no complaints made rr5 stated by elderly companion. the patient able to sleep comfortably on bed. Patient denies pain at this time. Patient states feeling better. Patient states symptoms have improved. Vital Signs: 06/12 22:30 BP 133 / 73; Pulse 71; Resp 16; Pulse Ox 95% on R/A; Weight 45.36 kg (R); Height 5 ft. fc 1 in. (154.94 cm) (R); Pain 0/10; 23:46 BP 118 / 63; Pulse 62; Resp 18; Pulse Ox 97% on R/A; Pain 0/10; aa1 06/13 00:30 BP 121 / 70; Pulse 60; Resp 17; Pulse Ox 99% on R/A; rr5 01:00 BP 128 / 71; Pulse 60; Resp 16; Pulse Ox 98% on R/A; rr5 12 22:30 Body Mass Index 18.89 (45.36 kg, 154.94 cm) fc [place] Coma Score: 06/12 22:30 Eye Response: spontaneous(4). Verbal Response: oriented(5). Motor Response: obeys rr5 commands(6). Total: 15. NIH Stroke Scale Scores: 22:50 NIHSS Score: 10 rr5 23:07 NIHSS Score: 10 cp 23:50 NIHSS Score: 10 rr5 06/13 01:00 NIHSS Score: 10 rr5 ED Course: 06/12 22:30 Patient arrived in ED. em1 22:30 Arm band placed on Patient placed in an exam room, on a stretcher. fc 22:30 Patient has correct armband on for positive identification. Placed in gown. Bed in low fc position. Call light in reach. Side rails up X2. paste up artist on. Pulse ox on. NIBP on. 22:30 No provider procedures requiring assistance completed. fc 22:33 Inserted saline lock: 20 gauge in left antecubital area, using aseptic technique. fc ,using aseptic technique. per iPa CHAVEZ. 22:37 Pete Enriquez PA is PHCP. cp 22:37 Conrado Loco MD is Attending Physician. cp 22:37 Initial lab(s) drawn, by ED staff, sent to lab. X-ray(s) taken. Pt taken to CT Scan via stretcher. 22:[address] via stretcher. vm2 22:40 CT completed. Patient tolerated procedure well. Patient moved back from CT. vm2 22:44 Jorden Henao MD is Private Physician. fc 22:44 CT Head Brain wo Cont In Process Unspecified. EDMS 22:46 Triage completed. fc 22:49 Gary Hunter, RN is Primary Nurse. rr5 22:50 XRAY Chest (1 view) In Process Unspecified. EDMS 23:15 Straight cath inserted, using sterile technique, 16 Fr. Specimen obtained. Returned aa1 cloudy urine. Patient tolerated well. 23:46 Jorden Henao MD is Hospitalizing Provider. cp 06/13 01:19 Patient admitted, IV remains in place. intact. rr5 Administered Medications: 06/12 23:24 Drug: foLIC Acid 1 mg Route: IVPB; Site: left antecubital; tl2 06/13 00:00 Follow up: Response: No adverse reaction; IV Status: Completed infusion; IV Intake: rr5 100ml 01:32 Follow up: Response: No adverse reaction; IV Status: Completed infusion; IV Intake: rr5 100ml 06/12 23:50 Drug: Rocephin - (cefTRIAXone) 1 grams Route: IVPB; Infused Over: 30 mins; Site: left rr5 antecubital; 06/13 01:31 Follow up: Response: No adverse reaction; IV Status: Completed infusion rr5 06/12 23:55 Drug: Aspirin Chewable Tablet 324 mg Route: PO; rr5 06/13 01:31 Follow up: Response: No adverse reaction rr5 00:06 Not Given (good gag reflex.aspirin 324mg given PO): Aspirin Suppository 300 mg CA once rr5 Point of Care Testing: Blood Glucose: 06/12 22:35 Blood Glucose: 154 mg/dL; fc Ranges: Intake: 06/13 00:00 IV: 100ml; Total: 100ml. rr5 01:32 IV: 100ml; Total: 200ml. rr5 Outcome: 06/12 23:47 Decision to Hospitalize by Provider. cp 12/07 01:19 Admitted to Med/surg accompanied by tech, via stretcher, with chart, Report called to rr5 heidy CHAVEZ Condition: stable Instructed on the need for admit. 01:32 Patient left the ED. rr5 NIH Stroke Scale - NIH Stroke Score Date: 06/12/2018 Time: 22:50 Total Score = 10 1a. Level of Consciousness (LOC) - 0(Alert) 1b. Level of Consciousness (LOC) (Year \T\ Age) - 1(One) 1c. LOC Commands (Open \T\ Closes Eyes/Distribution Warehouse Manager) - 1(One) 2. Best Gaze (Lateral Gaze Paresis) - 0(Normal) 3. Visual Field Loss - 0(No visual loss) 4. Facial Palsy - 1(Minor Paralysis) 5a. Left Arm: Motor (10-second hold) - 0(No drift) 5b. Right Arm: Motor (10-second hold) - 2(Drift, some effort against gravity) 6a. Left Leg: Motor (5-second hold - always test supine) - 0(No drift) 6b. Right Leg: Motor (5-second hold - always test supine) - 2(Drift, some effort against gravity) 7. Limb Ataxia (finger/nose \T\ heel/stapleton - test with eyes open) - 2(Present in two limbs) 8. Sensory Loss (pinprick arms/legs/face) - 0(Normal) 9. Best Language: Aphasia (description/naming/reading) - 1(Mild to moderate aphasia) 10. Dysarthria (speech clarity - read or repeat words) - 0(Normal) 11. Extinction and Inattention (visual/tactile/auditory/spatial/personal) - 0(No abnormality) Initials: rr5 NIH Stroke Scale - NIH Stroke Score Date: 06/12/2018 Time: 23:07 Total Score = 10 1a. Level of Consciousness (LOC) - 0(Alert) 1b. Level of Consciousness (LOC) (Year \T\ Age) - 1(One) 1c. LOC Commands (Open \T\ Closes Eyes/Distribution Warehouse Manager) - 1(One) 2. Best Gaze (Lateral Gaze Paresis) - 0(Normal) 3. Visual Field Loss - 0(No visual loss) 4. Facial Palsy - 1(Minor Paralysis) 5a. Left Arm: Motor (10-second hold) - 0(No drift) 5b. Right Arm: Motor (10-second hold) - 2(Drift, some effort against gravity) 6a. Left Leg: Motor (5-second hold - always test supine) - 0(No drift) 6b. Right Leg: Motor (5-second hold - always test supine) - 2(Drift, some effort against gravity) 7. Limb Ataxia (finger/nose \T\ heel/stapleton - test with eyes open) - 2(Present in two limbs) 8. Sensory Loss (pinprick arms/legs/face) - 0(Normal) 9. Best Language: Aphasia (description/naming/reading) - 1(Mild to moderate aphasia) 10. Dysarthria (speech clarity - read or repeat words) - 0(Normal) 11. Extinction and Inattention (visual/tactile/auditory/spatial/personal) - 0(No abnormality) Initials: cp NIH Stroke Scale - NIH Stroke Score Date: 06/12/2018 Time: 23:50 Total Score = 10 1a. Level of Consciousness (LOC) - 0(Alert) 1b. Level of Consciousness (LOC) (Year \T\ Age) - 1(One) 1c. LOC Commands (Open \T\ Closes Eyes/Distribution Warehouse Manager) - 1(One) 2. Best Gaze (Lateral Gaze Paresis) - 0(Normal) 3. Visual Field Loss - 0(No visual loss) 4. Facial Palsy - 1(Minor Paralysis) 5a. Left Arm: Motor (10-second hold) - 0(No drift) 5b. Right Arm: Motor (10-second hold) - 2(Drift, some effort against gravity) 6a. Left Leg: Motor (5-second hold - always test supine) - 0(No drift) 6b. Right Leg: Motor (5-second hold - always test supine) - 2(Drift, some effort against gravity) 7. Limb Ataxia (finger/nose \T\ heel/stapleton - test with eyes open) - 2(Present in two limbs) 8. Sensory Loss (pinprick arms/legs/face) - 0(Normal) 9. Best Language: Aphasia (description/naming/reading) - 1(Mild to moderate aphasia) 10. Dysarthria (speech clarity - read or repeat words) - 0(Normal) 11. Extinction and Inattention (visual/tactile/auditory/spatial/personal) - 0(No abnormality) Initials: rr5 NIH Stroke Scale - NIH Stroke Score Date: 06/13/2018 Time: 01:00 Total Score = 10 1a. Level of Consciousness (LOC) - 0(Alert) 1b. Level of Consciousness (LOC) (Year \T\ Age) - 1(One) 1c. LOC Commands (Open \T\ Closes Eyes/Distribution Warehouse Manager) - 1(One) 2. Best Gaze (Lateral Gaze Paresis) - 0(Normal) 3. Visual Field Loss - 0(No visual loss) 4. Facial Palsy - 1(Minor Paralysis) 5a. Left Arm: Motor (10-second hold) - 0(No drift) 5b. Right Arm: Motor (10-second hold) - 2(Drift, some effort against gravity) 6a. Left Leg: Motor (5-second hold - always test supine) - 0(No drift) 6b. Right Leg: Motor (5-second hold - always test supine) - 2(Drift, some effort against gravity) 7. Limb Ataxia (finger/nose \T\ heel/stapleton - test with eyes open) - 2(Present in two limbs) 8. Sensory Loss (pinprick arms/legs/face) - 0(Normal) 9. Best Language: Aphasia (description/naming/reading) - 1(Mild to moderate aphasia) 10. Dysarthria (speech clarity - read or repeat words) - 0(Normal) 11. Extinction and Inattention (visual/tactile/auditory/spatial/personal) - 0(No abnormality) Initials: rr5 Signatures: Dispatcher [employer] EDMS Pia Brewster RN RN aa1 aPtt Hart RN RN fc Martinez, Eric em1 Pete Enriquez PA PA cp Knox, Taylor, RN RN 2 Serina Holley [facility] Gary Hunter RN RN rr5 Corrections: (The following items were deleted from the chart) 02:27 02:24 Reassessment: rr5 rr5 04:57 00:12 NIHSS Score: 5 rr5 rr5 04:57 06/12 22:30 NIHSS Score: 6 rr5 rr5 06/13 04:57 12 22:30 NIHSS Score: 10 rr5 rr5 06/13 04:57 01:00 NIHSS Score: 10 rr5 rr5 05:02 06/12 23:50 NIHSS Score: 5 rr5 rr5 06/13 05:02 06/12 22:50 NIHSS Score: 10 rr5 rr5
[2018-06-12] MEDS ORDERED: ASPIRIN 81 MG CHEWABLE TABLET ONE (23:50)
[2018-06-12 23:57] LABS: Urine Bacteria LOADED /HPF (<20); Urine Culture Reflex Order REFLEXED; Urine RBC <5 /HPF (NONE SEEN)
[2018-06-13 00:15] LABS: Urine Blood NEGATIVE (NEG); Urine Glucose NEGATIVE (NEG); Urine Protein NEGATIVE (NEG); Urine Specific Gravity 1.015 (1.005-1.030); Urine pH 5.5 (5.0-7.0)
[2018-06-13] MEDS: NA CHLORIDE 0.9% 1,000 ML IV SCH ×3 (02:23→21:01)
[2018-06-13] MEDS ORDERED: INFLUENZA VACCINE (for 3y+) 0.5 ML DOSE IMVAC ONE (06:00)
[2018-06-13] MEDS ORDERED: PNEUMOCOCCAL VACCINE 0.5 ML IMVAC ONE (06:00)
[2018-06-13 07:00] LABS: CKMB Creatine Kinase MB 2.3 ng/mL (0.3-3.6); Creatine Phosphokinase 58 U/L (26-192); HDL Cholesterol 38 mg/dL (40-60); LDL Cholesterol, Calculated 122 (<130); Troponin I < 0.02 ng/mL (0.0-0.045)
--- NOTE | 2018-06-13 08:20 | RAD REPORT ---
EXAM DESCRIPTION: RAD - Chest Single View - 06/12/2018 10:50 pm CLINICAL HISTORY: right side weakness Chest pain. COMPARISON: Chest Single View dated 03/06/2018 FINDINGS: Portable technique limits examination quality. The lungs are grossly clear. The heart is normal in size. No displaced fractures. IMPRESSION: No acute intrathoracic process suspected.
--- NOTE | 2018-06-13 08:23 | RAD REPORT ---
EXAM DESCRIPTION: CT - Head Brain Wo Cont - 06/13/2018 1:20 am CLINICAL HISTORY: right arm and leg weakness CVA symptomology COMPARISON: No comparisons TECHNIQUE: All CT scans are performed using dose optimization technique as appropriate and may inclu de automated exposure control or mA/KV adjustment according to patient size. FINDINGS: No intracranial hemorrhage, hydrocephalus or extra-axial fluid collection.Advanced general ized brain atrophy is present with advanced periventricular and deep white matter chronic microvascul ar ischemic changes.No areas of brain edema or evidence of midline shift. The paranasal sinuses and mastoids are clear. The calvarium is intact. IMPRESSION: No acute intracranial abnormality. If there is continued clinical concern for CVA, MR i maging of the brain would be recommended.
--- NOTE | 2018-06-13 08:29 | EKG ---
Test Date: 2018-06-12 Test Time: 22:49:47 [employer] Project Manager: RR MEASUREMENT RESULTS: Intervals: Rate: 66 AK: 148 QRSD: 84 QT: 390 QTc: 408 [place]: P: 24 AK: 148 QRS: -24 T: 27 INTERPRETIVE STATEMENTS: Normal sinus rhythm Inferior infarct, age undetermined Abnormal ECG No previous ECG available for comparison Electronically Signed On 06-13-18 08:28:26 WAREHOUSE LEAD by Leonel Meraz
[2018-06-13] MEDS ORDERED: CEFTRIAXONE 1 GM/NS 50 ML 1 GM/50 ML BAG IV SCH (09:00)
[2018-06-13] MEDS ORDERED: ASPIRIN EC 81 MG TAB PO SCH (09:00)
--- NOTE | 2018-06-13 09:24 | RAD REPORT ---
EXAM DESCRIPTION: MRI - Brain W/Wo Cont - 06/13/2018 8:52 am CLINICAL HISTORY: ARM AND LEG WEAKNESS TIA/CVA symptomology COMPARISON: Head Brain Wo Cont dated 06/12/2018 TECHNIQUE: Multi-sequence, multiplanar MR imaging of the brain was performed with contrast. FINDINGS: Nonhemorrhagic acute infarct measuring 20 x 9 mm is seen in the left basal ganglia. No additional acute CVA is seen. Prominent brain atrophy is present with significant chronic microvascular ischemic changes. The midline structures are normally formed. Mastoid air cells and paranasal sinuses are clear. Post-contrast images show no abnormal enhancement to suggest tumor or infection. IMPRESSION: Acute nonhemorrhagic CVA left basal ganglia (20 x 9 mm). Findings were discussed with Dr. Henao at 9:20 a.m. 06/13/2018 by telephone.
--- NOTE | 2018-06-13 09:25 | RAD REPORT ---
EXAM DESCRIPTION: US - CP - 06/13/2018 9:06 am CLINICAL HISTORY: right arm and right leg weakness CVA symptomology COMPARISON: No comparisons TECHNIQUE: Real-time sonographic evaluation of both carotid systems was performed. Doppler interroga tion was performed with waveform tracing bilaterally. FINDINGS: Normal high resistance waveforms are noted in both external carotid arteries. The common c arotid arteries and internal carotid arteries show normal low resistance waveforms. Hard plaque is seen in both carotid bulbs with mild soft plaque also present on the left. Peak systol ic and end diastolic velocity values and the ICA/CCA ratios are in the non-hemodynamically significan t range. Antegrade flow seen in both vertebral arteries. IMPRESSION: Mild bilateral carotid bulb plaquing is present. No evidence of a hemodynamically significant stenosis.
[2018-06-13] MEDS: CEFTRIAXONE/SWI 1gm 1 GM/10 ML SYR IV SCH ×2 (09:49→20:18)
[2018-06-13] MEDS: MEMANTINE HCL 10 MG TABLET PO SCH ×2 (09:50→20:17)
[2018-06-13] MEDS: ENOXAPARIN 30 MG/0.3 ML SQ SCH (09:50)
--- NOTE | 2018-06-13 12:34 | RAD REPORT ---
EXAM DESCRIPTION: MRI - MRA Head Wo Cont - 06/13/2018 8:52 am CLINICAL HISTORY: right arm and right leg weakness CVA COMPARISON: Head Brain Wo Cont dated 06/12/2018 FINDINGS: 3D noncontrast [id number] MR angiography of the [place] was performed. No aneurysm, flow-limiting stenosis or vascular malformation is seen. Forward flow seen in codominant vertebral arteries. The visualized dural venous sinuses appear patent. IMPRESSION: No significant flow abnormality of the [place] is identified.
--- NOTE | 2018-06-13 12:36 | RAD REPORT ---
EXAM DESCRIPTION: MRI - MRA Neck W/Wo Cont - 06/13/2018 12:28 pm CLINICAL HISTORY: ARM AND LEG WEAKNESS COMPARISON: Carotid Artery Bilateral dated 06/13/2018; Brain W/Wo Cont dated 06/13/2018; Head Brain Wo Cont dated 06/12/2018 FINDINGS: Contrast enhance 2D [id number] MR angiography of the neck vessels was performed. A left aortic arch is seen with a normal origin pattern of the great vessels. No significant stenosis involving either subclavian artery or common carotid artery. Both internal carotid arteries show no significant stenosis. Antegrade flow is seen codominant verteb ral arteries. IMPRESSION: No significant carotid stenosis identified.
--- NOTE | 2018-06-13 14:09 | P.HP ---
Certification for Inpatient Patient admitted to: Inpatient With expected LOS: >2 Midnights Patient will require the following post-hospital care: [facility] Practitioner: I am a practitioner with admitting privileges, knowledge of patient current condition, hospital course, and medical plan of care. 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 She was not moving the right side of her body yesterday. her daughter noticed this about 3PM. Her grandson had to carry her to the Car and they brought her to The ER. She was not able to assist with her right side. She has been having some waxing and wanning of her consciousness. The patient is not responsive at this time. could not have her bedside swallow evaluation. Most of the history was taken from her daughter Allergies No Known Allergies Allergy (Verified 06/13/18 01:45) Home Medications: Cimetidine [Tagamet] 1 tab PO BEDTIME 06/13/18 Digoxin [Lanoxin*] 1 tab PO BEDTIME 06/13/18 Enalapril Maleate [Vasotec] 1 tab PO BEDTIME 06/13/18 Levothyroxine [Synthroid*] 1 tab PO 0630 06/13/18 Memantine HCl 1 tab PO BID 06/13/18 Potassium Chloride [Klor-Con 10] 1 tab PO BEDTIME 06/13/18 Venlafaxine HCl [Effexor XR] 1 tab PO BEDTIME 06/13/18 - Past Medical/Surgical History Has patient received pneumonia vaccine in the past: Yes Diabetic: No -: dimentia -: anemia -: HTN -: migraines -: arthritis -: gerd -: depression -: hypothyroidsm -: cataract surg bilaterally -: arm surg -: sinus surg -: tonsillectomy -: hysterectomy - Social History Smoking Status: Never smoker Alcohol use: No CD- Drugs: No Caffeine use: No Place of Residence: Home Review of Systems is unable to be obtained Physical Examination - Vital Signs Temperature: 97.3 F Blood Pressure: 109/56 Pulse: 60 Respirations: 16 Pulse Ox (%): 94 - Physical Exam General: Demented, Unresponsive HEENT: Atraumatic, PERRLA, Mucous membr. moist/pink, EOMI, Sclerae nonicteric Neck: Supple, 2+ carotid pulse no bruit, No LAD, Without JVD or thyroid abnormality Respiratory: Clear to auscultation bilaterally, Normal air movement Cardiovascular: Regular rate/rhythm, Normal S1 S2 Gastrointestinal: Normal bowel sounds, No tenderness Musculoskeletal: No tenderness Integumentary: No rashes Neurological: Normal gait, Normal speech, Normal strength at 5/5 x4 extr, Normal tone, Normal affect Lymphatics: No axilla or inguinal lymphadenopathy - Studies Laboratory Data (last 24 hrs) 06/12/18 22:36: PT 12.3, INR 1.04 06/12/18 22:36: WBC 11.7 H, Hgb 14.3, Hct 41.9, Plt Count 363 06/12/18 22:36: Sodium 139, Potassium 3.8, BUN 27 H, Creatinine 1.40 H, Glucose 134 H, Magnesium 1.9, Total Bilirubin 0.4, AST 11 L, ALT 20, Alkaline Phosphatase 71 Assessment and Plan - Problems (Diagnosis) (1) Infarction of left basal ganglia Current Visit: Yes Status: Acute Plan: Will need a a swallow evaluation. Will refer for possible snf placement (2) UTI (urinary tract infection) Current Visit: Yes Status: Acute Plan: treat with ceftriaxone Qualifiers: Urinary tract infection type: acute cystitis (3) Dementia Current Visit: Yes Status: Acute Plan: will make placement difficutly. Not likely to be eligible for inpatient placement Qualifiers: Dementia type: Alzheimer's disease Discharge Plan: Home Plan to discharge in: Greater than 2 days - Advance Directives Does patient have a Living Will: Yes Does patient have a Durable POA for Healthcare: Yes - Code Status/Comfort Care Code Status Assessed: No Code Status: Full Code Physician Review: Patient Assessed, Agree with Above Assessment and Plan Critical Care: No Time Spent Managing Pts Care (In Minutes): 65
--- NOTE | 2018-06-13 17:40 | CON ---
Reason For Consultation: Consultation called because of stroke. History Of Present Illness: Ms. Mancilla is an 87-year-old right-handed patient who has wmexdolj-gn-ijwloets vascular dementia and is admitted with a left basal ganglia stroke impacting her right side. The patient's daughter is in the room and provided information. The patient is current ly very sedated, actually very sleepy and difficult to arouse. Her daughter notes that she was in he r usual interactive self yesterday around 1 p.m. in the afternoon when she got up to get to the bathr oom and there was right-sided arm and leg weakness along with right facial droop. She noted things b ecame worse by the evening and she eventually brought her in to [facility] and her arrival t jarrod in the emergency room was at 2230 in the evening. At that time, she had a head CT scan, which sh owed no acute ischemic or hemorrhagic change; however, subsequent brain MRI did identify a basal gang raffaele stroke measuring 12 mm x 9 mm in the left basal ganglia. The urinalysis revealed she is loaded w ith bacteria, positive nitrites consistent with a urinary tract infection. Creatinine was elevated a t 1.4 consistent with dehydration. Subsequent lipids did show elevated triglycerides 593, low HDL of 38, glucose ranged 134-154. Liver function studies were essentially unremarkable. White blood cell count was slightly elevated at 11.7, normal differential, normal coagulation panel. Subsequent edward tid artery ultrasound showed no evidence of hemodynamically significant stenosis. Chest x-ray showed no acute processes. Electrocardiogram did show a sinus rhythm, right inferior infarct, age undeterm ined. The patient's daughter said she was giving her an aspirin off and on, but not on a regular basis. Rianna mujica was also providing for her 24 hours a day for the last 4 years due to her dementia. The patient di d see Dr. Cruz in the past and did have a brain imaging MRI showing advanced small vessel ischemic d isease and her dementia is likely vascular. Past Medical History: Hypertension, history of migraines, arthritis, gastroesophageal reflux disease , depression, hypothyroidism, anemia. Surgical History: Cataract surgery, bilateral arm surgery, sinus injury, tonsillectomy, hysterectomy . Allergies: NO KNOWN DRUG ALLERGIES. Home Medications: Cimetidine 800 mg daily, digoxin 125 mcg daily, enalapril 20 mg daily, potassium 1 0 mEq daily, levothyroxine 75 mcg daily, Memantine 10 mg twice daily, venlafaxine 150 mg daily. Family History: Noncontributory. Social History: The patient resides with her daughter who is her caregiver. She is 24 hours with he r mom. No alcohol, tobacco, or IV drug use. Review of Systems: Not possible. The patient only grunts and does not answer with sentences. Physical Examination: Vital Signs: Blood pressure 109/56, pulse 60, respiratory rate 16, temperature 97.3, O2 saturation 9 4%, weight 107 pounds, height 5 feet 1 inch. General: Ms. Mancilla is resting in bed. She appears to be in no acute distress. HEENT: Normocephalic, atraumatic. Sclerae are anicteric. Oropharynx is moist. Neck: Supple. Chest: Clear. Heart: Regular. Extremities: Show no edema or cyanosis. Neurologic: The patient requires repeated stimulation to be awake. She has a slight decrease of the right nasolabial fold but could not get her to smile as far as excursions. She does respond to the touch in the face on both sides. Unable to assess the strength of response. Otherwise, no obvious c ranial nerve deficits. Could not fully assess palate or tongue. Motor examination: On the left tari e, she was able to hold the left arm up for a count of 10; on the right, she drifted down after a cou nt of 5. Her legs, she did not move them to stimulation. The patient had to be repeatedly stimulate d to remain awake. Unable to fully assess leg strength. Sensory Exam: She does respond to noxious stimuli in the lower extremities; does respond left stronger than right. Reflexes are 0 at the kumar la, heels, and upper extremities. Unable to assess coordination, gait. NIH Stroke Scale above 19. Assessment: Ms. Mancilla is an 87-year-old patient with left basal ganglia stroke, very large size ; right-sided deficit of face, arm, leg weakness. She has a baseline of dppfzcxx-pn-dlamrbfs vascula r dementia. She has risk factors of hypertension, dyslipidemia, and a urinary tract infection. Plan: 1.Continue the aspirin 81 mg daily. 2.Continue digoxin 0.125 mg daily. 3.Continue with DVT prophylaxis using Lovenox 30 mg subcutaneously daily. 4.Also, continue with memantine 10 mg twice daily. 5.Continue Lipitor 20 mg at bedtime. 6.Continue with Rocephin for urinary tract infection. 7.Also, continue with all other medications as indicated. 8.The patient will be evaluated for the ability to enter into acute rehabilitation unit by Physical and Occupational Therapy. If she does not qualify, she may benefit from senior living. However, s he does require 24-hour supervision for safety awareness and she should have a formal swallow evaluat ion done by her speech pathologist. She did have a bedside screen, but a full study will determine w hether or not she is able to have nutrition orally. The patient's daughter said they did not discuss the potential of tubes, but she had a [id number] code status. EVANGELINA/KALEY Voice ID: [id number] Report ID: [id number]
[2018-06-13] MEDS: FAMOTIDINE 20 MG TAB PO SCH ×2 (20:17→21:00)
[2018-06-13] MEDS: VENLAFAXINE HCL XR 75 MG CAP PO SCH ×2 (20:17→21:01)
[2018-06-13] MEDS: DIGOXIN 0.125 MG TABLET PO SCH (20:17)
[2018-06-13] MEDS: POTASSIUM CL SA 10 MEQ TAB PO SCH ×2 (20:17→21:00)
[2018-06-13] MEDS: ATORVASTATIN 20 MG TAB PO SCH (20:18)
[2018-06-13] MEDS ORDERED: CIMETIDINE PO SCH (21:00)
[2018-06-14] MEDS: LEVOTHYROXINE SOD 0.075 MG TAB PO SCH (06:21)
[2018-06-14] MEDS: NA CHLORIDE 0.9% 1,000 ML IV SCH (06:23)
[2018-06-14] MEDS: CEFTRIAXONE/SWI 1gm 1 GM/10 ML SYR IV SCH ×2 (10:21→20:20)
[2018-06-14] MEDS: ENOXAPARIN 30 MG/0.3 ML SQ SCH (10:21)
[2018-06-14] MEDS: MEMANTINE HCL 10 MG TABLET PO SCH ×2 (10:21→21:00)
[2018-06-14] MEDS: ASPIRIN 325 MG TAB PO SCH (10:21)
--- NOTE | 2018-06-14 11:28 | P.PN ---
Subjective Date of Service: 06/14/18 Primary Care Provider: Earlene Chief Complaint: Left basal gangalion cva Subjective: New changes (Patient opeans eyes to moderate stimulation. Cannot follow order) Review of Systems is unable to be obtained (family states she had a few spoons of pudding. Nursing reports she chocked on every bite) Physical Examination - Vital Signs Temperature: 97.6 F Blood Pressure: 146/68 Pulse: 61 Respirations: 16 Pulse Ox (%): 96 - Physical Exam General: In no apparent distress, Demented (opeans eyes only. Grunts affirmative) HEENT: Atraumatic, PERRLA, EOMI Neck: Supple, JVD not distended Respiratory: Clear to auscultation bilaterally, Normal air movement Cardiovascular: Regular rate/rhythm, Normal S1 S2 Gastrointestinal: Normal bowel sounds, No tenderness Musculoskeletal: No tenderness Integumentary: No rashes Neurological: Normal speech, Normal tone, Normal affect, Abnormal strength, Abnormal tone (right side has poor muscle tone. Patient not moving that side of the body) Lymphatics: No axilla or inguinal lymphadenopathy Assessment & Plan - Problems (Diagnosis) (1) Infarction of left basal ganglia Current Visit: Yes Status: Acute Plan: Will need a a swallow evaluation. Will refer for possible snf placement. Will need to make her npo. Will start her on fluids. Will have the patient get a barium swallow on Saturday. She can have the aspirin and protonix only under supravision., with small sips of water (2) UTI (urinary tract infection) Current Visit: Yes Status: Acute Plan: treat with ceftriaxone Qualifiers: Urinary tract infection type: acute cystitis (3) Dementia Current Visit: Yes Status: Acute Plan: will make placement difficutly. Not likely to be eligible for inpatient placement. Considering her debility and the fact that she cannot eat, her recovery is problematic. Would not recommend a peg tube for the patient. As it has not been shown to extend life expectancy. Discussed hospice with the patient's daughter. She did not want to discuss it. End of life discussion may be appropriate at this time. However the daughter does not seem ready. will need to be diplomatic Qualifiers: Dementia type: Alzheimer's disease Discharge Plan: Retirement Plan to discharge in: Greater than 2 days - Code Status/Comfort Care Code Status Assessed: No Code Status: Do Not Resuscitate Physician Review: Patient Assessed, Agree with Above Assessment and Plan Critical Care: No Time Spent Managing Pts Care (In Minutes): 35
[2018-06-14] MEDS: D5 0.45 NS 1,000 ML IV SCH ×2 (12:41→23:31)
[2018-06-14] MEDS: ATORVASTATIN 20 MG TAB PO SCH (21:00)
[2018-06-14] MEDS: FAMOTIDINE 20 MG TAB PO SCH (21:00)
[2018-06-14] MEDS: POTASSIUM CL SA 10 MEQ TAB PO SCH (21:00)
[2018-06-14] MEDS: DIGOXIN 0.125 MG TABLET PO SCH (21:00)
[2018-06-14] MEDS: VENLAFAXINE HCL XR 75 MG CAP PO SCH (21:00)
[2018-06-15] MEDS: D5 0.45 NS 1,000 ML IV SCH ×2 (01:20→14:40)
[2018-06-15] MEDS: LEVOTHYROXINE SOD 0.075 MG TAB PO SCH (05:25)
[2018-06-15] MEDS: MEMANTINE HCL 10 MG TABLET PO SCH ×2 (09:00→21:00)
[2018-06-15] MEDS: ENOXAPARIN 30 MG/0.3 ML SQ SCH (10:28)
[2018-06-15] MEDS: CEFTRIAXONE/SWI 1gm 1 GM/10 ML SYR IV SCH ×2 (10:28→20:48)
--- NOTE | 2018-06-15 11:10 | P.PN ---
Subjective Date of Service: 06/15/18 Primary Care Provider: Earlene Chief Complaint: Left basal gangalion cva Subjective: New changes (Patient is more awake last night per the family, daughter at bedside) Review of Systems is unable to be obtained Physical Examination - Vital Signs Temperature: 97.1 F Blood Pressure: 128/74 Pulse: 66 Respirations: 18 Pulse Ox (%): 96 - Physical Exam General: In no apparent distress, Demented, Confused HEENT: Atraumatic, PERRLA, EOMI Neck: Supple, JVD not distended Respiratory: Clear to auscultation bilaterally, Normal air movement Cardiovascular: Regular rate/rhythm, Normal S1 S2 Gastrointestinal: Normal bowel sounds, No tenderness Musculoskeletal: No tenderness Integumentary: No rashes Neurological: Normal affect, Abnormal strength (right side is stronger 3/5 strength in the right hand. Cannot resist gravity) Lymphatics: No axilla or inguinal lymphadenopathy - Studies Microbiology Data (last 24 hrs): 06/12/18 23:20 Catheterized Urine Maxwell Count - Final >100,000 CFU/ML. 06/12/18 23:20 Catheterized Urine - Final Klebsiella Oxytoca Assessment & Plan - Problems (Diagnosis) (1) Infarction of left basal ganglia Current Visit: Yes Status: Acute Plan: Will need a a swallow evaluation. Will refer for possible snf placement. Will need to make her npo. Will start her on fluids. Hopefully she will be able to have some swallowing. Wait for a barium swallow and speach therapy evaluation tomorrow. Ability to eat will be important for placement (2) UTI (urinary tract infection) Current Visit: Yes Status: Acute Plan: treat with ceftriaxone Qualifiers: Urinary tract infection type: acute cystitis (3) Dementia Current Visit: Yes Status: Acute Plan: will make placement difficutly. Not likely to be eligible for inpatient placement. Considering her debility and the fact that she cannot eat, her recovery is problematic. Would not recommend a peg tube for the patient. As it has not been shown to extend life expectancy. Discussed hospice with the patient's daughter. She did not want to discuss it. End of life discussion may be appropriate at this time. However the daughter does not seem ready. will need to be diplomatic Qualifiers: Dementia type: Alzheimer's disease Discharge Plan: [facility]sp Plan to discharge in: 72 Hours - Code Status/Comfort Care Code Status Assessed: No Code Status: Do Not Resuscitate Physician Review: Patient Assessed, Agree with Above Assessment and Plan Critical Care: No Time Spent Managing Pts Care (In Minutes): 25
[2018-06-15] MEDS: VENLAFAXINE HCL XR 75 MG CAP PO SCH (21:00)
[2018-06-15] MEDS: DIGOXIN 0.125 MG TABLET PO SCH (21:00)
[2018-06-15] MEDS: POTASSIUM CL SA 10 MEQ TAB PO SCH (21:00)
[2018-06-15] MEDS: ATORVASTATIN 20 MG TAB PO SCH (21:00)
[2018-06-15] MEDS: FAMOTIDINE 20 MG TAB PO SCH (21:00)
[2018-06-16] MEDS: LEVOTHYROXINE SOD 0.075 MG TAB PO SCH (04:53)
[2018-06-16] MEDS: D5 0.45 NS 1,000 ML IV SCH ×3 (04:59→21:34)
[2018-06-16] MEDS: ASPIRIN 325 MG TAB PO SCH (09:00)
[2018-06-16] MEDS: MEMANTINE HCL 10 MG TABLET PO SCH ×2 (09:00→21:00)
[2018-06-16] MEDS: CEFTRIAXONE/SWI 1gm 1 GM/10 ML SYR IV SCH ×2 (09:25→21:30)
[2018-06-16] MEDS: ENOXAPARIN 30 MG/0.3 ML SQ SCH (09:25)
--- NOTE | 2018-06-16 10:47 | P.PN ---
Subjective Date of Service: 06/16/18 Primary Care Provider: Earlene Chief Complaint: Left basal gangalion cva Subjective: No new changes Review of Systems is unable to be obtained Physical Examination - Vital Signs Temperature: 97.6 F Blood Pressure: 126/60 Pulse: 78 Respirations: 18 Pulse Ox (%): 90 - Physical Exam General: In no apparent distress, Demented HEENT: Atraumatic, PERRLA, EOMI Neck: Supple, JVD not distended Respiratory: Clear to auscultation bilaterally, Normal air movement Cardiovascular: Regular rate/rhythm, Normal S1 S2 Gastrointestinal: Normal bowel sounds, No tenderness Musculoskeletal: No tenderness Integumentary: No rashes Neurological: Normal affect, Abnormal strength (3/5 on the right side), Abnormal tone Lymphatics: No axilla or inguinal lymphadenopathy - Studies Microbiology Data (last 24 hrs): 06/12/18 23:20 Catheterized Urine Sanders Count - Final >100,000 CFU/ML. 06/12/18 23:20 Catheterized Urine - Final Klebsiella Oxytoca Assessment & Plan - Problems (Diagnosis) (1) Infarction of left basal ganglia Current Visit: Yes Status: Acute Plan: Will need a a swallow evaluation. Will refer for possible snf placement. Will need to make her npo. Will start her on fluids. Hopefully she will be able to have some swallowing. Wait for a barium swallow and speach therapy evaluation tomorrow. Ability to eat will be important for placement (2) UTI (urinary tract infection) Current Visit: Yes Status: Acute Plan: treat with ceftriaxone Qualifiers: Urinary tract infection type: acute cystitis (3) Dementia Current Visit: Yes Status: Acute Plan: will make placement difficutly. Not likely to be eligible for inpatient placement. Considering her debility and the fact that she cannot eat, her recovery is problematic. Would not recommend a peg tube for the patient. As it has not been shown to extend life expectancy. Discussed hospice with the patient's daughter. She did not want to discuss it. End of life discussion may be appropriate at this time. However the daughter does not seem ready. will need to be diplomatic Qualifiers: Dementia type: Alzheimer's disease - Code Status/Comfort Care Code Status Assessed: No Code Status: Do Not Resuscitate Physician Review: Patient Assessed, Agree with Above Assessment and Plan Critical Care: No Time Spent Managing Pts Care (In Minutes): 20
[2018-06-16] MEDS: FAMOTIDINE 20 MG TAB PO SCH (21:00)
[2018-06-16] MEDS: VENLAFAXINE HCL XR 75 MG CAP PO SCH (21:00)
[2018-06-16] MEDS: ATORVASTATIN 20 MG TAB PO SCH (21:00)
[2018-06-16] MEDS: POTASSIUM CL SA 10 MEQ TAB PO SCH (21:00)
[2018-06-16] MEDS: DIGOXIN 0.125 MG TABLET PO SCH (21:00)
[2018-06-17] MEDS: D5 0.45 NS 1,000 ML IV SCH ×2 (06:19→20:42)
[2018-06-17] MEDS: LEVOTHYROXINE SOD 0.075 MG TAB PO SCH (06:30)
[2018-06-17] MEDS: ASPIRIN 325 MG TAB PO SCH (08:54)
[2018-06-17] MEDS: MEMANTINE HCL 10 MG TABLET PO SCH ×2 (08:54→20:43)
[2018-06-17] MEDS: CEFTRIAXONE/SWI 1gm 1 GM/10 ML SYR IV SCH ×2 (09:00→20:41)
[2018-06-17] MEDS: ENOXAPARIN 30 MG/0.3 ML SQ SCH (09:03)
--- NOTE | 2018-06-17 09:37 | P.PN ---
Subjective Date of Service: 06/17/18 Primary Care Provider: Earlene Chief Complaint: Left basal gangalion cva Subjective: No new changes Review of Systems is unable to be obtained Physical Examination - Vital Signs Temperature: 97.0 F Blood Pressure: 126/62 Pulse: 58 Respirations: 18 Pulse Ox (%): 95 - Physical Exam General: In no apparent distress, Demented HEENT: Atraumatic, PERRLA, EOMI Neck: Supple, JVD not distended Respiratory: Clear to auscultation bilaterally, Normal air movement Cardiovascular: Regular rate/rhythm, Normal S1 S2 Gastrointestinal: Normal bowel sounds, No tenderness Musculoskeletal: No tenderness Integumentary: No rashes Neurological: Normal speech, Normal tone, Normal affect Lymphatics: No axilla or inguinal lymphadenopathy Assessment & Plan - Problems (Diagnosis) (1) Infarction of left basal ganglia Current Visit: Yes Status: Acute Plan: Will need a a swallow evaluation. Will refer for possible snf placement. Will need to make her npo. Will start her on fluids. She failed the barium swallow. Will consult Dr. Mtz for a PEG placement (2) UTI (urinary tract infection) Current Visit: Yes Status: Acute Plan: treat with ceftriaxone She is on day 4 of ceftriaxone. Can most likely stop after tommorrows dosage. Qualifiers: Urinary tract infection type: acute cystitis (3) Dementia Current Visit: Yes Status: Acute Plan: will make placement difficutly. Not likely to be eligible for inpatient placement. Considering her debility and the fact that she cannot eat, her recovery is problematic. Would not recommend a peg tube for the patient. As it has not been shown to extend life expectancy. Discussed hospice with the patient's daughter. She did not want to discuss it. End of life discussion may be appropriate at this time. However the daughter does not seem ready. will need to be diplomatic Qualifiers: Dementia type: Alzheimer's disease (4) End of life care Current Visit: Yes Status: Acute Plan: spent 30 min with the family discussing the patients prognosis. The options are PEG tube and SNF or Hospice. She most likely will not improve without proper nutrition. The patients family seem to be leaning towards PEG tube. Will consult Dr. Mtz and can Have [facility] come discuss the options with the patient's family. Discharge Plan: LTAC Plan to discharge in: 72 Hours - Code Status/Comfort Care Code Status Assessed: No Code Status: Do Not Resuscitate Physician Review: Patient Assessed, Agree with Above Assessment and Plan Critical Care: No Time Spent Managing Pts Care (In Minutes): 50
[2018-06-17] MEDS: POTASSIUM CL SA 10 MEQ TAB PO SCH (20:43)
[2018-06-17] MEDS: FAMOTIDINE 20 MG TAB PO SCH (20:43)
[2018-06-17] MEDS: DIGOXIN 0.125 MG TABLET PO SCH (20:43)
[2018-06-17] MEDS: VENLAFAXINE HCL XR 75 MG CAP PO SCH (20:43)
[2018-06-17] MEDS: ATORVASTATIN 20 MG TAB PO SCH (20:43)
[2018-06-18] MEDS: LEVOTHYROXINE SOD 0.075 MG TAB PO SCH (05:36)
--- NOTE | 2018-06-18 08:00 | RAD REPORT ---
EXAM DESCRIPTION: RAD - Chest Single View - 06/17/2018 10:53 pm CLINICAL HISTORY: Device placement PICC line placement COMPARISON: June 12, 2018 FINDINGS: A PICC line has been inserted with its tip in the distal superior vena cava. Small vague opacity is present the left lung base which can be monitored on a subsequent exam. . The heart is normal size. IMPRESSION: PICC line with its tip in the distal superior vena cava
[2018-06-18] MEDS: ENOXAPARIN 30 MG/0.3 ML SQ SCH (08:55)
[2018-06-18] MEDS: CEFTRIAXONE/SWI 1gm 1 GM/10 ML SYR IV SCH ×2 (08:55→20:28)
[2018-06-18] MEDS: ASPIRIN 325 MG TAB PO SCH (08:56)
[2018-06-18] MEDS: MEMANTINE HCL 10 MG TABLET PO SCH ×2 (08:56→20:28)
[2018-06-18] MEDS: D5 0.45 NS 1,000 ML IV SCH (08:56)
--- NOTE | 2018-06-18 10:10 | P.PN ---
Subjective Date of Service: 06/18/18 Primary Care Provider: Earlene Chief Complaint: Left basal gangalion cva Subjective: Improving (Patient is more alert and able to move her right leg) Review of Systems is unable to be obtained Physical Examination - Vital Signs Temperature: 96.9 F Blood Pressure: 117/58 Pulse: 58 Respirations: 16 Pulse Ox (%): 97 - Physical Exam General: Alert, In no apparent distress HEENT: Atraumatic, PERRLA, EOMI Neck: Supple, JVD not distended Respiratory: Clear to auscultation bilaterally, Normal air movement Cardiovascular: Regular rate/rhythm, Normal S1 S2 Gastrointestinal: Normal bowel sounds, No tenderness Musculoskeletal: No tenderness Integumentary: No rashes Neurological: Normal affect, Abnormal speech, Abnormal strength (4/5 which is improved) Lymphatics: No axilla or inguinal lymphadenopathy Assessment & Plan - Problems (Diagnosis) (1) Infarction of left basal ganglia Current Visit: Yes Status: Acute Plan: Will need a a swallow evaluation. Will refer for possible snf placement. Will need to make her npo. Will start her on fluids. She failed the barium swallow. Will consult Dr. Mtz for a PEG placement (2) UTI (urinary tract infection) Current Visit: Yes Status: Acute Plan: treat with ceftriaxone She is on day 4 of ceftriaxone. Can most likely stop after tommorrows dosage. Qualifiers: Urinary tract infection type: acute cystitis (3) Dementia Current Visit: Yes Status: Acute Plan: will make placement difficutly. Not likely to be eligible for inpatient placement. Considering her debility and the fact that she cannot eat, her recovery is problematic. Would not recommend a peg tube for the patient. As it has not been shown to extend life expectancy. Discussed hospice with the patient's daughter. She did not want to discuss it. End of life discussion may be appropriate at this time. However the daughter does not seem ready. will need to be diplomatic Qualifiers: Dementia type: Alzheimer's disease (4) End of life care Current Visit: Yes Status: Acute Plan: Spent time discussing with the daughter. She wanted tpn as the least invasive option. Try this for a few days and then a peg. If she only needs a peg for short term. Discussed that that is not very likely. She has a poor prognosis, before issues with nutrition presented. She most likely will need alternative nutrition truck terminal manager if not permanently. As we have decided on tpn will do this for a while. We can try a PEG in the future. . Will get a nutrition consult start tpn and transfer to SNF Discharge Plan: LTAC Plan to discharge in: 48 Hours - Code Status/Comfort Care Code Status Assessed: No Code Status: Full Code Physician Review: Patient Assessed, Agree with Above Assessment and Plan Critical Care: No Time Spent Managing Pts Care (In Minutes): 35
[2018-06-18] MEDS ORDERED: DEXTROSE 10%-WATER 500 ML IV SCH (12:00)
[2018-06-18] MEDS: AA 5%/D20W/ELECTROLYTES-TPN 2,000 ML, Lipids 20% 250 ML with MULTIVITAMINS INJ 10 ML IV SCH ×3 (18:11)
[2018-06-18 19:38] LABS: Potassium 2.7 mmol/L (3.5-5.1)
[2018-06-18] MEDS: POTASSIUM CL SA 10 MEQ TAB PO SCH (20:27)
[2018-06-18] MEDS: FAMOTIDINE 20 MG TAB PO SCH (20:27)
[2018-06-18] MEDS: ATORVASTATIN 20 MG TAB PO SCH (20:27)
[2018-06-18] MEDS: VENLAFAXINE HCL XR 75 MG CAP PO SCH (20:27)
[2018-06-18] MEDS: DIGOXIN 0.125 MG TABLET PO SCH (20:27)
[2018-06-18] MEDS: KCL 20 MEQ/100 mL IVPB 20 MEQ/100 ML BAG IV SCH ×2 (20:28→22:38)
[2018-06-19] MEDS: KCL 20 MEQ/100 mL IVPB 20 MEQ/100 ML BAG IV SCH (00:29)
[2018-06-19 05:01] LABS: Absolute Lymphocytes (CBC) 2.1 K/uL (0.7-4.9); Absolute Neutrophil 9.2 K/uL (1.8-8.0); Basophils % 0.3 % (0-1.3); Eosinophils % 1.9 % (0-4.4); Hematocrit 37.6 % (36.0-45.0); Lymphocytes % 16.7 % (15.3-44.8); MCH 31.8 pg (27.0-35.0); MCV 92.7 fL (80-100); MPV 7.9 fL (7.6-11.3); Monocytes % 8.2 % (3.3-12.3); RBC Red Blood Cell Count 4.06 M/uL (3.86-4.86)
[2018-06-19 05:17] LABS: Potassium 3.5 mmol/L (3.5-5.1); Prealbumin 22.5 mg/dL (20-40)
[2018-06-19] MEDS: LEVOTHYROXINE SOD 0.075 MG TAB PO SCH (05:22)
[2018-06-19] MEDS ORDERED: KCL 20 MEQ/100 mL IVPB 20 MEQ/100 ML BAG IV SCH (06:00)
[2018-06-19] MEDS: CEFTRIAXONE/SWI 1gm 1 GM/10 ML SYR IV SCH (09:00)
[2018-06-19] MEDS: ASPIRIN 325 MG TAB PO SCH (09:32)
[2018-06-19] MEDS: MEMANTINE HCL 10 MG TABLET PO SCH ×2 (09:32→21:08)
[2018-06-19] MEDS: ENOXAPARIN 30 MG/0.3 ML SQ SCH (09:32)
[2018-06-19] MEDS ORDERED: CEFTRIAXONE/SWI 1gm 1 GM/10 ML SYR IV ONE (09:45)
--- NOTE | 2018-06-19 11:50 | RAD REPORT ---
EXAM DESCRIPTION: RAD - Barium Swallow Modified - 06/19/2018 11:03 am CLINICAL HISTORY: CVA, aspiration pneumonia COMPARISON: Abdomen Pelvis Wo Contrast dated 03/06/2018 TECHNIQUE: The patient was given liquid, semi-solid and solid forms of barium. Lateral view fluorosc opic imaging was performed in conjunction with speech pathology service. FINDINGS: Aspiration: extremly delayed cough, with thin liquid via tsp study was very limited as patient was not accepting nectar, honey, or pudding boluses. Pureed bolus w as removed from oral cavity by REED CLEANER. Total fluoroscopy time: 2 minutes and 32 seconds
--- NOTE | 2018-06-19 13:38 | P.DS ---
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 She was not moving the right side of her body yesterday. her daughter noticed this about 3PM. Her grandson had to carry her to the Car and they brought her to The ER. She was not able to assist with her right side. She has been having some waxing and wanning of her consciousness. The patient is not responsive at this time. could not have her bedside swallow evaluation. Most of the history was taken from her daughter Hospital Course: Patient came in and was found to have a left basal ganglion cva. She was admitted to the floor. Seen by Dr. Fam. The patients right sided hemiplegia. Had several meetings with the family. They wished to see if tpn was a middle ground. I wish them the best. Vital Signs/Physical Exam: Temp Pulse Resp BP Pulse Ox 97.9 F 65 16 160/74 H 96 06/19/18 12:00 06/19/18 12:00 06/19/18 12:00 06/19/18 12:00 06/19/18 12:00 General: Alert, In no apparent distress HEENT: Atraumatic, PERRLA, EOMI Neck: Supple, JVD not distended Respiratory: Clear to auscultation bilaterally, Normal air movement Cardiovascular: Regular rate/rhythm, Normal S1 S2 Gastrointestinal: Normal bowel sounds, No tenderness Musculoskeletal: No tenderness Integumentary: No rashes Neurological: Normal speech, Normal tone, Normal affect Lymphatics: No axilla or inguinal lymphadenopathy Laboratory Data at Discharge: WBC 12.6 K/uL (4.3-10.9) H 06/19/18 04:15 Hgb 12.9 g/dL (12.0-15.0) 06/19/18 04:15 Hct 37.6 % (36.0-45.0) 06/19/18 04:15 Plt Count 340 K/uL (152-406) 06/19/18 04:15 PT 12.3 SECONDS (9.5-12.5) 06/12/18 22:36 INR 1.04 06/12/18 22:36 Sodium 141 mmol/L (136-145) 06/19/18 04:15 Potassium 3.5 mmol/L (3.5-5.1) 06/19/18 04:15 BUN 11 mg/dL (7-18) 06/19/18 04:15 Creatinine 0.80 mg/dL (0.55-1.3) 06/19/18 04:15 Glucose 118 mg/dL (74-106) H 06/19/18 04:15 Phosphorus 2.0 mg/dL (2.5-4.9) L 06/19/18 04:15 Magnesium 2.0 mg/dL (1.8-2.4) 06/19/18 04:15 Total Bilirubin 0.4 mg/dL (0.2-1.0) 06/12/18 22:36 AST 11 U/L (15-37) L 06/12/18 22:36 ALT 20 U/L (12-78) 06/12/18 22:36 Alkaline Phosphatase 71 U/L (45-117) 06/12/18 22:36 Troponin I < 0.02 ng/mL (0.0-0.045) 06/13/18 06:16 Triglycerides 168 mg/dL (<150) H 06/19/18 04:15 Cholesterol 199 mg/dL (<200) 06/13/18 06:16 HDL Cholesterol 38 mg/dL (40-60) L 06/13/18 06:16 Cholesterol/HDL Ratio 5.24 06/13/18 06:16 Home Medications: Cimetidine [Tagamet] 1 tab PO BEDTIME 06/13/18 Digoxin [Lanoxin*] 1 tab PO BEDTIME 06/13/18 Enalapril Maleate [Vasotec] 1 tab PO BEDTIME 06/13/18 Levothyroxine [Synthroid*] 1 tab PO 0630 06/13/18 Memantine HCl 1 tab PO BID 06/13/18 Potassium Chloride [Klor-Con 10] 1 tab PO BEDTIME 06/13/18 Venlafaxine HCl [Effexor XR] 1 tab PO BEDTIME 06/13/18 Aspirin [Aspirin EC 81 MG] 81 mg PO DAILY 90 Days #90 tablet. 06/19/18 New Medications: Aspirin [Aspirin EC 81 MG] 81 mg PO DAILY 90 Days #90 tablet. Diet: tpn Activity: Fall precautions Time spent managing pt's care (in minutes): 40
[2018-06-19] MEDS: AA 5%/D20W/ELECTROLYTES-TPN 2,000 ML, Lipids 20% 250 ML with MULTIVITAMINS INJ 10 ML IV SCH ×3 (18:21)
[2018-06-19] MEDS: DIGOXIN 0.125 MG TABLET PO SCH (21:00)
[2018-06-19] MEDS: VENLAFAXINE HCL XR 75 MG CAP PO SCH (21:07)
[2018-06-19] MEDS: POTASSIUM CL SA 10 MEQ TAB PO SCH (21:07)
[2018-06-19] MEDS: ATORVASTATIN 20 MG TAB PO SCH (21:08)
[2018-06-19] MEDS: FAMOTIDINE 20 MG TAB PO SCH (21:11)
[2018-06-20 05:12] LABS: Absolute Lymphocytes (CBC) 2.3 K/uL (0.7-4.9); Absolute Neutrophil 8.5 K/uL (1.8-8.0); Basophils % 0.4 % (0-1.3); Eosinophils % 5.7 % (0-4.4); Hematocrit 36.3 % (36.0-45.0); Lymphocytes % 18.6 % (15.3-44.8); MCH 32.4 pg (27.0-35.0); MCV 94.2 fL (80-100); MPV 8.5 fL (7.6-11.3); Monocytes % 7.8 % (3.3-12.3); RBC Red Blood Cell Count 3.85 M/uL (3.86-4.86)
[2018-06-20] MEDS: LEVOTHYROXINE SOD 0.075 MG TAB PO SCH (05:16)
[2018-06-20 06:19] LABS: Potassium 3.8 mmol/L (3.5-5.1); Prealbumin 21.3 mg/dL (20-40)
[2018-06-20] MEDS: MEMANTINE HCL 10 MG TABLET PO SCH ×2 (09:26→20:54)
[2018-06-20] MEDS: ENOXAPARIN 30 MG/0.3 ML SQ SCH (09:26)
[2018-06-20] MEDS: ASPIRIN 325 MG TAB PO SCH (09:26)
--- NOTE | 2018-06-20 15:54 | P.PN ---
Subjective Date of Service: 06/20/18 Primary Care Provider: Earlene Chief Complaint: Left basal gangalion cva Subjective: No new changes Physical Examination - Vital Signs Temperature: 97.4 F Blood Pressure: 161/76 Pulse: 82 Respirations: 18 Pulse Ox (%): 96 - Physical Exam General: Demented HEENT: Atraumatic, PERRLA, EOMI Neck: Supple, JVD not distended Respiratory: Clear to auscultation bilaterally, Normal air movement Cardiovascular: Regular rate/rhythm, Normal S1 S2 Gastrointestinal: Normal bowel sounds, No tenderness Musculoskeletal: No tenderness Integumentary: No rashes Neurological: Normal affect, Abnormal strength (4/5), Abnormal tone Lymphatics: No axilla or inguinal lymphadenopathy Assessment & Plan - Problems (Diagnosis) (1) Infarction of left basal ganglia Current Visit: Yes Status: Acute Plan: Will need a a swallow evaluation. Will refer for possible snf placement. Will need to make her npo. Will start her on fluids. She failed the barium swallow. Will consult Dr. Mtz for a PEG placement (2) UTI (urinary tract infection) Current Visit: Yes Status: Acute Plan: treat with ceftriaxone She is on day 4 of ceftriaxone. Can most likely stop after tommorrows dosage. Qualifiers: Urinary tract infection type: acute cystitis (3) Dementia Current Visit: Yes Status: Acute Plan: will make placement difficutly. Not likely to be eligible for inpatient placement. Considering her debility and the fact that she cannot eat, her recovery is problematic. Would not recommend a peg tube for the patient. As it has not been shown to extend life expectancy. Discussed hospice with the patient's daughter. She did not want to discuss it. End of life discussion may be appropriate at this time. However the daughter does not seem ready. will need to be diplomatic Qualifiers: Dementia type: Alzheimer's disease (4) End of life care Current Visit: Yes Status: Acute Plan: Spent time discussing with the daughter.She wants to see if the patient can pass a swallow evaluation. Would see if we can get her to SNF with the least invasive means. Discussed that the prognosis is very poor. The patient is selective in her communications. She is improving with nutrition. However will she get adequate nutrition for PT. Physician Review: Patient Assessed, Agree with Above Assessment and Plan Critical Care: No Time Spent Managing Pts Care (In Minutes): 35
[2018-06-20] MEDS: AA 5%/D20W/ELECTROLYTES-TPN 2,000 ML, Lipids 20% 250 ML with MULTIVITAMINS INJ 10 ML IV SCH ×3 (18:17)
[2018-06-20 19:00] LABS: Potassium 3.3 mmol/L (3.5-5.1)
[2018-06-20] MEDS: DIGOXIN 0.125 MG TABLET PO SCH (20:53)
[2018-06-20] MEDS: FAMOTIDINE 20 MG TAB PO SCH (20:55)
[2018-06-20] MEDS: POTASSIUM CL SA 10 MEQ TAB PO SCH (20:55)
[2018-06-20] MEDS: ATORVASTATIN 20 MG TAB PO SCH (20:55)
[2018-06-20] MEDS: VENLAFAXINE HCL XR 75 MG CAP PO SCH (20:56)
[2018-06-21 06:29] LABS: Absolute Monocytes 0.8 K/uL (0.1-1.3); Absolute Neutrophil 7.5 K/uL (1.8-8.0); Basophils % 0.5 % (0-1.3); Eosinophils % 5.8 % (0-4.4); Lymphocytes % 25.2 % (15.3-44.8); MCH 32.6 pg (27.0-35.0); MCV 93.3 fL (80-100); MPV 8.5 fL (7.6-11.3); Monocytes % 6.4 % (3.3-12.3); RBC Red Blood Cell Count 3.75 M/uL (3.86-4.86)
[2018-06-21 06:43] LABS: Magnesium 1.8 mg/dL (1.8-2.4)
[2018-06-21 06:52] LABS: BUN Blood Urea Nitrogen 30 mg/dL (7-18); Bicarbonate 26 mmol/L (21-32); Glucose Level 107 mg/dL (74-106); Potassium 3.2 mmol/L (3.5-5.1); Sodium Level 140 mmol/L (136-145)
[2018-06-21] MEDS: MEMANTINE HCL 10 MG TABLET PO SCH ×2 (08:34→21:27)
[2018-06-21] MEDS: ENOXAPARIN 30 MG/0.3 ML SQ SCH (08:34)
[2018-06-21] MEDS: ASPIRIN 325 MG TAB PO SCH (08:34)
[2018-06-21] MEDS: LEVOTHYROXINE SOD 0.075 MG TAB PO SCH (08:34)
--- NOTE | 2018-06-21 13:15 | P.PN ---
Subjective Date of Service: 06/21/18 Primary Care Provider: Earlene Chief Complaint: Left basal gangalion cva Subjective: No new changes Review of Systems is unable to be obtained Physical Examination - Vital Signs Temperature: 97.6 F Blood Pressure: 161/74 Pulse: 58 Respirations: 17 Pulse Ox (%): 96 - Physical Exam General: In no apparent distress, Demented HEENT: Atraumatic, PERRLA, EOMI Neck: Supple, JVD not distended Respiratory: Clear to auscultation bilaterally, Normal air movement Cardiovascular: Regular rate/rhythm, Normal S1 S2 Gastrointestinal: Normal bowel sounds, No tenderness Musculoskeletal: No tenderness Integumentary: No rashes Neurological: Normal affect, Abnormal strength (4/5), Dementia (swallowing pills with apple sauce) Lymphatics: No axilla or inguinal lymphadenopathy Assessment & Plan - Problems (Diagnosis) (1) Infarction of left basal ganglia Current Visit: Yes Status: Acute Plan: Will need a a swallow evaluation. Will refer for possible snf placement. Will need to make her npo. Will start her on fluids. She failed the barium swallow. Will consult Dr. Mtz for a PEG placement (2) UTI (urinary tract infection) Current Visit: Yes Status: Acute Plan: treat with ceftriaxone She is on day 4 of ceftriaxone. Can most likely stop after tommorrows dosage. Qualifiers: Urinary tract infection type: acute cystitis (3) Dementia Current Visit: Yes Status: Acute Plan: will make placement difficutly. Not likely to be eligible for inpatient placement. Considering her debility and the fact that she cannot eat, her recovery is problematic. Would not recommend a peg tube for the patient. As it has not been shown to extend life expectancy. Discussed hospice with the patient's daughter. She did not want to discuss it. End of life discussion may be appropriate at this time. However the daughter does not seem ready. will need to be diplomatic Qualifiers: Dementia type: Alzheimer's disease (4) End of life care Current Visit: Yes Status: Acute Plan: Spent time discussing with the daughter.She wants to see if the patient can pass a swallow evaluation. Would see if we can get her to SNF with the least invasive means. Discussed that the prognosis is very poor. The patient is selective in her communications. She is improving with nutrition. However will she get adequate nutrition for PT. Physician Review: Patient Assessed, Agree with Above Assessment and Plan
[2018-06-21] MEDS: AA 5%/D20W/ELECTROLYTES-TPN 2,000 ML, Lipids 20% 250 ML with MULTIVITAMINS INJ 10 ML IV SCH ×3 (16:42)
[2018-06-21] MEDS: ATORVASTATIN 20 MG TAB PO SCH (21:26)
[2018-06-21] MEDS: POTASSIUM CL SA 10 MEQ TAB PO SCH (21:26)
[2018-06-21] MEDS: DIGOXIN 0.125 MG TABLET PO SCH (21:26)
[2018-06-21] MEDS: VENLAFAXINE HCL XR 75 MG CAP PO SCH (21:27)
[2018-06-21] MEDS: FAMOTIDINE 20 MG TAB PO SCH (21:27)
[2018-06-21 21:55] LABS: Potassium 3.3 mmol/L (3.5-5.1)
[2018-06-22 05:41] LABS: BUN Blood Urea Nitrogen 33 mg/dL (7-18); Bicarbonate 27 mmol/L (21-32); Glucose Level 116 mg/dL (74-106); Potassium 3.4 mmol/L (3.5-5.1); Sodium Level 139 mmol/L (136-145)
[2018-06-22 05:45] LABS: Magnesium 1.8 mg/dL (1.8-2.4); Prealbumin 20.7 mg/dL (20-40)
[2018-06-22 05:55] LABS: Absolute Lymphocytes (CBC) 2.7 K/uL (0.7-4.9); Absolute Monocytes 0.9 K/uL (0.1-1.3); Absolute Neutrophil 8.2 K/uL (1.8-8.0); Basophils % 0.4 % (0-1.3); Eosinophils % 5.4 % (0-4.4); Hematocrit 34.4 % (36.0-45.0); Lymphocytes % 21.8 % (15.3-44.8); MCH 32.2 pg (27.0-35.0); MCV 93.3 fL (80-100); MPV 8.6 fL (7.6-11.3); Monocytes % 7.5 % (3.3-12.3); RBC Red Blood Cell Count 3.69 M/uL (3.86-4.86)
[2018-06-22] MEDS: MEMANTINE HCL 10 MG TABLET PO SCH ×2 (10:38→21:29)
[2018-06-22] MEDS: ENOXAPARIN 30 MG/0.3 ML SQ SCH (10:38)
[2018-06-22] MEDS: LEVOTHYROXINE SOD 0.075 MG TAB PO SCH (10:38)
[2018-06-22] MEDS: ASPIRIN 325 MG TAB PO SCH (10:38)
--- NOTE | 2018-06-22 11:06 | P.PN ---
Subjective Date of Service: 06/22/18 Primary Care Provider: Earlene Chief Complaint: Left basal gangalion cva Subjective: No new changes Review of Systems 10-point ROS is otherwise unremarkable (Patient answers some today. States no fever, chills or sob) Physical Examination - Vital Signs Temperature: 98.2 F Blood Pressure: 141/71 Pulse: 64 Respirations: 18 Pulse Ox (%): 94 - Physical Exam General: Alert, In no apparent distress HEENT: Atraumatic, PERRLA, EOMI Neck: Supple, JVD not distended Respiratory: Clear to auscultation bilaterally, Normal air movement Cardiovascular: Regular rate/rhythm, Normal S1 S2 Gastrointestinal: Normal bowel sounds, No tenderness Musculoskeletal: No tenderness Integumentary: No rashes Neurological: Normal affect, Abnormal strength (4/5) Lymphatics: No axilla or inguinal lymphadenopathy Assessment & Plan - Problems (Diagnosis) (1) Infarction of left basal ganglia Current Visit: Yes Status: Acute Plan: Will need a a swallow evaluation tomorrow. See if we can get her off tpn. The daughter is still not wanting a peg tube. She has been tolerating some apple sauce. will see if we can d/c without tpn. She would get better nutrition with a peg tube. However still would be a poor prognosis (2) UTI (urinary tract infection) Current Visit: Yes Status: Acute Plan: treat with ceftriaxone She is on day 4 of ceftriaxone. Can most likely stop after tommorrows dosage. Qualifiers: Urinary tract infection type: acute cystitis (3) Dementia Current Visit: Yes Status: Acute Plan: will make placement difficutly. Not likely to be eligible for inpatient placement. Considering her debility and the fact that she cannot eat, her recovery is problematic. Would not recommend a peg tube for the patient. As it has not been shown to extend life expectancy. Discussed hospice with the patient's daughter. She did not want to discuss it. End of life discussion may be appropriate at this time. However the daughter does not seem ready. will need to be diplomatic Qualifiers: Dementia type: Alzheimer's disease (4) End of life care Current Visit: Yes Status: Acute Plan: Spent time discussing with the daughter.She wants to see if the patient can pass a swallow evaluation. Would see if we can get her to SNF with the least invasive means. Discussed that the prognosis is very poor. The patient is selective in her communications. She is improving with nutrition. However will she get adequate nutrition for PT. Discharge Plan: Home Plan to discharge in: 48 Hours - Code Status/Comfort Care Code Status Assessed: No Code Status: Do Not Resuscitate Physician Review: Patient Assessed, Agree with Above Assessment and Plan Critical Care: No Time Spent Managing Pts Care (In Minutes): 20
[2018-06-22] MEDS: AA 5%/D20W/ELECTROLYTES-TPN 2,000 ML, Lipids 20% 250 ML with MULTIVITAMINS INJ 10 ML IV SCH ×3 (17:07)
[2018-06-22] MEDS: POTASSIUM CL SA 10 MEQ TAB PO SCH (21:29)
[2018-06-22] MEDS: ATORVASTATIN 20 MG TAB PO SCH (21:29)
[2018-06-22] MEDS: FAMOTIDINE 20 MG TAB PO SCH (21:29)
[2018-06-22] MEDS: VENLAFAXINE HCL XR 75 MG CAP PO SCH (21:30)
[2018-06-22] MEDS: DIGOXIN 0.125 MG TABLET PO SCH (21:30)
[2018-06-23] MEDS: LEVOTHYROXINE SOD 0.075 MG TAB PO SCH (05:43)
[2018-06-23 05:45] LABS: BUN Blood Urea Nitrogen 29 mg/dL (7-18); Bicarbonate 26 mmol/L (21-32); Glucose Level 117 mg/dL (74-106); Potassium 3.6 mmol/L (3.5-5.1); Prealbumin 21.1 mg/dL (20-40); Sodium Level 136 mmol/L (136-145)
[2018-06-23 05:46] LABS: Absolute Lymphocytes (CBC) 2.8 K/uL (0.7-4.9); Absolute Monocytes 0.9 K/uL (0.1-1.3); Absolute Neutrophil 8.1 K/uL (1.8-8.0); Basophils % 0.2 % (0-1.3); Eosinophils % 4.6 % (0-4.4); Lymphocytes % 22.3 % (15.3-44.8); MCH 32.4 pg (27.0-35.0); MCV 92.6 fL (80-100); MPV 8.8 fL (7.6-11.3); Monocytes % 7.1 % (3.3-12.3); RBC Red Blood Cell Count 3.67 M/uL (3.86-4.86)
[2018-06-23] MEDS: MEMANTINE HCL 10 MG TABLET PO SCH ×3 (09:00→23:05)
[2018-06-23] MEDS: ASPIRIN 325 MG TAB PO SCH ×2 (09:00→12:00)
--- NOTE | 2018-06-23 11:38 | P.PN ---
Subjective Date of Service: 06/23/18 Primary Care Provider: Earlene Chief Complaint: Left basal gangalion cva Subjective: No new changes Review of Systems is unable to be obtained Physical Examination - Vital Signs Temperature: 97.5 F Blood Pressure: 133/69 Pulse: 64 Respirations: 16 Pulse Ox (%): 94 - Physical Exam General: Alert, In no apparent distress, Demented HEENT: Atraumatic, PERRLA, EOMI Neck: Supple, JVD not distended Respiratory: Clear to auscultation bilaterally, Normal air movement Cardiovascular: Regular rate/rhythm, Normal S1 S2 Gastrointestinal: Normal bowel sounds, No tenderness Musculoskeletal: No tenderness Integumentary: No rashes Neurological: Normal affect, Abnormal strength (4/5) Lymphatics: No axilla or inguinal lymphadenopathy Assessment & Plan - Problems (Diagnosis) (1) Infarction of left basal ganglia Current Visit: Yes Status: Acute Plan: Will need a a swallow evaluation tomorrow. Swill redo the barium swallow. If negative will remove the lipids from the tpn and transfer to snf. the staff there has stated they have hospice experience. May be better to discuss with them residential (2) UTI (urinary tract infection) Current Visit: Yes Status: Resolved Plan: treat with ceftriaxone She is on day 4 of ceftriaxone. Can most likely stop after tommorrows dosage. Qualifiers: Urinary tract infection type: acute cystitis (3) Dementia Current Visit: Yes Status: Acute Plan: will make placement difficutly. Not likely to be eligible for inpatient placement. Considering her debility and the fact that she cannot eat, her recovery is problematic. Would not recommend a peg tube for the patient. As it has not been shown to extend life expectancy. Discussed hospice with the patient's daughter. She did not want to discuss it. End of life discussion may be appropriate at this time. However the daughter does not seem ready. will need to be diplomatic Qualifiers: Dementia type: Alzheimer's disease (4) End of life care Current Visit: Yes Status: Acute Plan: Spent time discussing with the grandaulaquita. She is aware, that a peg tube or hospice may be in the patients future. The daughter however may not be ready for this. The patient smiled in agreement to that statement. Which goes to her awarness of the situation Discharge Plan: Alf Plan to discharge in: 48 Hours - Code Status/Comfort Care Code Status Assessed: No Code Status: Do Not Resuscitate Physician Review: Patient Assessed, Agree with Above Assessment and Plan Critical Care: No Time Spent Managing Pts Care (In Minutes): 25
--- NOTE | 2018-06-23 11:44 | RAD REPORT ---
EXAM DESCRIPTION: RAD - Barium Swallow Modified - 06/23/2018 11:23 am CLINICAL HISTORY: Dysphagia, dementia, history of CVA COMPARISON: None. TECHNIQUE: The patient was given liquid, semi-solid and solid forms of barium. Lateral view fluorosc opic imaging was performed in conjunction with speech pathology service. FINDINGS: Multiple aspiration episodes were observed during the various consistencies of contrast ma terial. There is pharyngeal residual. Patient had prolonged mastication with delayed swallowing refle x. Fluoro time was 4 minutes 17 seconds. There were 20 cine loop acquisitions obtained. IMPRESSION: Modified barium swallow as detailed above and on speech pathology report.
[2018-06-23] MEDS: ENOXAPARIN 30 MG/0.3 ML SQ SCH (12:00)
[2018-06-23] MEDS: ATORVASTATIN 20 MG TAB PO SCH (23:05)
[2018-06-23] MEDS: POTASSIUM CL SA 10 MEQ TAB PO SCH (23:05)
[2018-06-23] MEDS: FAMOTIDINE 20 MG TAB PO SCH (23:05)
[2018-06-23] MEDS: VENLAFAXINE HCL XR 75 MG CAP PO SCH (23:06)
[2018-06-23] MEDS: DIGOXIN 0.125 MG TABLET PO SCH (23:07)
[2018-06-24 05:25] LABS: Absolute Lymphocytes (CBC) 2.7 K/uL (0.7-4.9); Absolute Monocytes 0.9 K/uL (0.1-1.3); Basophils % 0.6 % (0-1.3); Eosinophils % 4.4 % (0-4.4); Hematocrit 35.9 % (36.0-45.0); Lymphocytes % 20.6 % (15.3-44.8); MCH 31.9 pg (27.0-35.0); MCV 93.7 fL (80-100); MPV 8.6 fL (7.6-11.3); RBC Red Blood Cell Count 3.83 M/uL (3.86-4.86)
[2018-06-24 05:44] LABS: Magnesium 2.1 mg/dL (1.8-2.4); Prealbumin 20.8 mg/dL (20-40)
[2018-06-24] MEDS: LEVOTHYROXINE SOD 0.075 MG TAB PO SCH (05:50)
[2018-06-24] MEDS ORDERED: CEFAZOLIN 1GM (PREMIX IV) 1 GM/50 ML BAG ONE (06:46)
[2018-06-24] MEDS ORDERED: CEFAZOLIN/NS 1gm 1 GM/50 ML BAG IVPB ONE (07:00)
[2018-06-24] MEDS ORDERED: NA CHLORIDE 0.9% 50 ML ONE (07:07)
--- NOTE | 2018-06-24 09:14 | P.DS ---
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 She was not moving the right side of her body yesterday. her daughter noticed this about 3PM. Her grandson had to carry her to the Car and they brought her to The ER. She was not able to assist with her right side. She has been having some waxing and wanning of her consciousness. The patient is not responsive at this time. could not have her bedside swallow evaluation. Most of the history was taken from her daughter Hospital Course: Patient came in and was found to have a left basal ganglion cva. She was admitted to the floor. Seen by Dr. Fam. The patients right sided hemiplegia. Had several meetings with the family. Patient initial failed the swallow evaluation. Was started on tpn per the family request. She passed the second swallow evaluation. The patient has a poor prognosis. However hopefully she will do well with Physical therapy. We wish her well. Vital Signs/Physical Exam: Temp Pulse Resp BP Pulse Ox 97.5 F 66 16 127/67 92 06/24/18 04:00 06/24/18 04:00 06/24/18 04:00 06/24/18 04:00 06/24/18 04:00 General: Alert, In no apparent distress HEENT: Atraumatic, PERRLA, EOMI Neck: Supple, JVD not distended Respiratory: Clear to auscultation bilaterally, Normal air movement Cardiovascular: Regular rate/rhythm, Normal S1 S2 Gastrointestinal: Normal bowel sounds, No tenderness Musculoskeletal: No tenderness Integumentary: No rashes Neurological: Normal speech, Normal tone, Normal affect Lymphatics: No axilla or inguinal lymphadenopathy Laboratory Data at Discharge: WBC 13.3 K/uL (4.3-10.9) H 06/24/18 05:15 Hgb 12.2 g/dL (12.0-15.0) 06/24/18 05:15 Hct 35.9 % (36.0-45.0) L 06/24/18 05:15 Plt Count 283 K/uL (152-406) 06/24/18 05:15 PT 12.3 SECONDS (9.5-12.5) 06/12/18 22:36 INR 1.04 06/12/18 22:36 Sodium 136 mmol/L (136-145) 06/23/18 04:35 Potassium 3.6 mmol/L (3.5-5.1) 06/23/18 04:35 BUN 29 mg/dL (7-18) H 06/23/18 04:35 Creatinine 0.60 mg/dL (0.55-1.3) 06/23/18 04:35 Glucose 117 mg/dL (74-106) H 06/23/18 04:35 Phosphorus 3.0 mg/dL (2.5-4.9) 06/20/18 04:10 Magnesium 2.1 mg/dL (1.8-2.4) 06/24/18 05:15 Total Bilirubin 0.4 mg/dL (0.2-1.0) 06/12/18 22:36 AST 11 U/L (15-37) L 06/12/18 22:36 ALT 20 U/L (12-78) 06/12/18 22:36 Alkaline Phosphatase 71 U/L (45-117) 06/12/18 22:36 Troponin I < 0.02 ng/mL (0.0-0.045) 06/13/18 06:16 Triglycerides 185 mg/dL (<150) H 06/20/18 04:10 Cholesterol 199 mg/dL (<200) 06/13/18 06:16 HDL Cholesterol 38 mg/dL (40-60) L 06/13/18 06:16 Cholesterol/HDL Ratio 5.24 06/13/18 06:16 Home Medications: Cimetidine [Tagamet] 1 tab PO BEDTIME 06/13/18 Digoxin [Lanoxin*] 1 tab PO BEDTIME 06/13/18 Enalapril Maleate [Vasotec] 1 tab PO BEDTIME 06/13/18 Levothyroxine [Synthroid*] 1 tab PO 0630 06/13/18 Memantine HCl 1 tab PO BID 06/13/18 Potassium Chloride [Klor-Con 10] 1 tab PO BEDTIME 06/13/18 Venlafaxine HCl [Effexor XR] 1 tab PO BEDTIME 06/13/18 Aspirin [Aspirin EC 81 MG] 81 mg PO DAILY 90 Days #90 tablet. 06/19/18 New Medications: Aspirin [Aspirin EC 81 MG] 81 mg PO DAILY 90 Days #90 tablet. Diet: tpn Activity: Fall precautions Time spent managing pt's care (in minutes): 25
[2018-06-24] MEDS: MEMANTINE HCL 10 MG TABLET PO SCH (10:49)
[2018-06-24] MEDS: ASPIRIN 325 MG TAB PO SCH (10:49)
[2018-06-24] MEDS: ENOXAPARIN 30 MG/0.3 ML SQ SCH (10:49)
== END 2018-06-24 17:50 | DRG 65 ==
LOC: ER 22:27 → ERHOLD 23:49 → 2ND 06-13 01:15
PROVIDERS: ADMIT Internal Medicine; ATTEND Internal Medicine
PROC: 02HV33Z Insertion of Infusion Device into Superior Vena Cava, Percutaneous Approach (ICD-10-PCS; principal; 2018-06-17)
PROC: B548ZZA Ultrasonography of Superior Vena Cava, Guidance (ICD-10-PCS; 2018-06-17)
PROC: 3E0436Z Introduction of Nutritional Substance into Central Vein, Percutaneous Approach (ICD-10-PCS; 2018-06-17)
DX: I63.9 Cerebral infarction, unspecified (principal); G81.91 Hemiplegia, unspecified affecting right dominant side; N30.00 Acute cystitis without hematuria; R29.710 NIHSS score 10; G30.9 Alzheimer's disease, unspecified; F02.80 Dementia in other diseases classified elsewhere, unspecified severity, without behavioral disturbance, psychotic disturbance, mood disturbance, and anxiety; R29.810 Facial weakness; M19.90 Unspecified osteoarthritis, unspecified site; K21.9 Gastro-esophageal reflux disease without esophagitis; F32.9 Major depressive disorder, single episode, unspecified; E03.9 Hypothyroidism, unspecified; Z66 Do not resuscitate; F01.50 Vascular dementia, unspecified severity, without behavioral disturbance, psychotic disturbance, mood disturbance, and anxiety; Z51.5 Encounter for palliative care
CPT/HCPCS: 36415; 51702; 70450; 70544; 70549; 70553; 71045; 74230; 80048; 80061; 80076; 81003; 81015; 82550; 82553; 82962; 83735; 83880; 84100; 84134; 84478; 84484; 85025; 85610; 87077; 87086; 87088; 87186; 90670; 92526; 92611; 93005; 93306; 93880; 96365; 97110; 97112; 97162; 97167; 97530; 99285; A9577; G0008; G0009; J0690; J0696; J1650; J7030; Q2035